=== PATIENT | female | born 1935 | race Two or more races ===

== ENCOUNTER 2024-09-06 12:57 | Outpatient (AMB) | payer MEDICARE, SELFPAY ==
[2024-09-06 13:07] VITALS: BP 146/75; PULSE 77; RESP 18; TEMP 35.2; O2SAT 96; BMI 23.8
--- NOTE | 2024-09-06 13:07 | ORTHONT_ITS ---
Vital signs 09/06/24 13:07 Height 1.55 m Height Method Stated Weight 57.351 kg Weight Measurement Method Standing Scale BMI 23.8 BP 146/75 H Blood Pressure Source Automatic Cuff Blood Pressure Location Right Upper Arm Position Sitting Respiration 18 Pulse 77 Pulse Source Monitor Temp 95.3 F L Temp Source Temporal Artery Scan Pulse Oximetry (%) 96 Oxygen Delivery Method Room Air Med/Allergies Allergies & Medications Allergies NKA* Allergy (Uncoded 09/06/24 13:09) Medication Reconciliation carvedilol 3.125 mg tablet (Coreg) 3.125 mg PO BID HEART #0 tabs 06/30/14 [History Confirmed 09/06/24] furosemide 20 mg tablet (Lasix) 20 mg PO QDAY DIURETIC #0 tabs 06/30/14 [History Confirmed 09/06/24] potassium chloride 20 mEq tablet,extended release(part/cryst) 20 meq PO QDAY POTASSIUM ##0 06/30/14 [History Confirmed 09/06/24] simvastatin 20 mg tablet (Zocor) 20 mg PO HS CHOLESTEROL #0 tabs 06/30/14 [History Confirmed 09/06/24] valsartan 80 mg tablet (Diovan) 80 mg PO QDAY HBP #0 tabs 06/30/14 [History Confirmed 09/06/24] Multivitamins With Minerals * (OCUVITE *) 1 tab PO QDAY SUPPLEMENT #0 tabs 09/05/14 [History Confirmed 09/06/24] aspirin 81 mg chewable tablet 81 mg PO QDAY HEART ##0 09/05/14 [History Confirmed 09/06/24] omeprazole 20 mg capsule,delayed release (Prilosec) 20 mg PO QDAY GERD ##0 09/05/14 [History Confirmed 09/06/24] naproxen 500 mg tablet 500 mg PO BID PRN pain #30 tabs 09/06/24 [Rx] Subjective Visit Visit for: follow up visit and hip Immunization / Flu Flu Vaccine in the Last 12 Months: No Flu Vaccine Exclusion Criteria: Refused by Patient History of Present Illness Chief complaint: RIGHT HIP PAIN Patient is a pleasant 89-year-old female with right hip pain. This has been ongoing for 6 months. She is tried ibuprofen. She is taking nzmb-juv-qyjoxny ibuprofen. Reports the pain has actually gotten better significantly. She has no difficulty with socks or shoes Pain Pain level (0-10): 0 Pain duration: ONLY WHEN SITTING TOO LONG Pain location: inside (medial) (HIP) Pain quality: sharp Pain timing: increases with activity and other (specify) (SITTING TOO LONG) Associated signs & symptoms: weakness and stiffness Ambulatory data Ambulatory device: none Treatments Improvement with previous injections: No Improvement with PT: No Improvement with NSAIDS: no Review of Systems Review of Systems: All systems negative unless otherwise noted in HPI. Exam Exam Patient is in no acute distress and is cooperative with the examination today. Breathing is nonlabored. In no respiratory distress. Patient has no paraspinal tenderness. Spinal deformity [cannot] be appreciated. The gait of the patient is [nonantalgic] Bilateral extremities were evaluated and demonstrates sensation intact to light touch. Palpable pedal pulses are present. No significant edema is present. Bilateral knees were examined and the patient has full strength and range of mo tion.. The right hip was examined. Patient was able to flex to 90 degrees, adduct to 30 degrees, abduct to 40 degrees, internally rotate to 20 degrees, and externally rotate to 20 degrees. Patient has a negative logroll. Stinchfield is negative. The patient is nontender diffusely to touch. The left hip was examined. Patient was able to flex to [90] degrees, adduct to [30] degrees, abduct to [40] degrees, internally rotate to [20] degrees, and externally rotate to [20] degrees. Patient has a [negative] logroll. The stinchfield is [negative]. Bilateral hip x-rays demonstrate moderate arthritis of both hips. The right is greater than the left. There is joint space narrowing Assessment and Plan Problem List (1) Arthritis of right hip: Status: Acute Plan: Patient is a pleasant 89-year-old female with bilateral hip pain worse on the right. We discussed nonoperative and operative options. Continue with continued conservative treatment. We will continue with anti-inflammatories we discussed we can do a hip bursa injection if needed. She will see me on an as- needed basis (2) Trochanteric bursitis of both hips: Status: Acute Advanced Care Planning Discussion Advance care planning discussed with:: patient Office Procedures GNS Level of Care Nursing/Assessment Patient Status: Established Patient Nursing Assessment/Reassesment: Medication Reconciliation, Update PMH in EMR and Vital Signs Coordination of Care: Complex Care and Chronic Disease 1-5, Education Complex Pt/Fam, Consent,records obtained, informed consent, Results/Orders obtained and Staff clarify orders Established Patient Charge Established Patient Point Assignment: 95 Established Patient Point Charge: EP Level 3 (80-115) Past Medical History Past Medical History Have you ever been diagnosed with any of the following: Respiratory Problems Smoking: No Smoking Exposure: No
== END 2024-09-06 13:27 | disposition home or self-care (01) ==
LOC: HODSRG 12:57
PROVIDERS: PCP Internal Medicine; Referring Provider Internal Medicine; Supervising Provider Orthopaedic Surgery Adult Reconstructive Orthopaedic Surgery; Visit Provider Orthopaedic Surgery Adult Reconstructive Orthopaedic Surgery
DX: M16.11 Unilateral primary osteoarthritis, right hip (principal); M70.62 Trochanteric bursitis, left hip; M70.61 Trochanteric bursitis, right hip
CPT/HCPCS: 99213; G0463

== ENCOUNTER → 2024-11-21 | Outpatient (CLI) | payer MEDICARE, SELFPAY ==
[2024-11-21 17:32] LABS: Basophils % (Auto) 0 % (0-2.5); Eosinophils % (Auto) 0 % (0-10); Hematocrit 32.5 % (36.0-46.0); Hemoglobin 10.8 g/dL (12.0-16.0); Immature Granulocytes % (Auto) 1 % (0-0); Immature Granulocytes Auto 0.07 Thou/mm3 (0.00-0.00); Lymphocytes # (Auto) 1.5 Thou/mm3 (1.0-4.8); Lymphocytes % (Auto) 28 % (10-50); Mean Corpuscular HGB Conc 33.2 g/dl (31.0-37.0); Mean Corpuscular Hemoglobin 28.6 pg (25.0-35.0); Mean Corpuscular Volume 86 fL (80-100); Monocytes # (Auto) 1.6 Thou/mm3 (0.0-0.8); Monocytes % (Auto) 30 % (0-12); Neutrophils % (Auto) 39 % (37-80); Nucleated Red Blood Cell % 0 /100 WBC (0); Platelet Count 118 Thou/mm3 (140-440); Red Blood Count 3.78 Miln/mm3 (4.00-5.20); White Blood Count 5.1 Thou/mm3 (3.6-11.0)
== END | disposition home or self-care (01) ==
LOC: COPL 16:40
PROVIDERS: PCP Internal Medicine; Referring Provider Internal Medicine; Visit Provider Internal Medicine
DX: I10 Essential (primary) hypertension (principal)
CPT/HCPCS: 36415; 85025

== ENCOUNTER 2025-01-26 09:05 | Day surgery (SDC) | payer MEDICARE, SELFPAY ==
--- NOTE | 2025-01-25 13:54 | EKG_ITS ---
[facility] Test Date: 2025-01-25 Pat Name: ABHISHEK MUELLER Department: Room: - Gender: Female Brinell Tester: JUAN JOSE : 1935 Requested By: Cecily Mendoza Order Number: [id number] Reading MD: Cecily Mendoza Measurements Intervals [place] Rate: 63 P: 48 [place]: 138 QRS: -12 QRSD: 138 T: 130 QT: 460 QTc: 474 Interpretive Statements SINUS RHYTHM POSSIBLE LEFT ATRIAL ENLARGEMENT [-0.1mV P WAVE IN V1/V2] LEFT BUNDLE BRANCH BLOCK [120+ ms QRS DURATION, 80+ ms Q/S IN V1/V2, 85+ ms R IN I/aVL/V5/V6] No previous ECG available for comparison /store/S0/[id number].pdf
[2025-01-25 14:36] LABS: Basophils % (Auto) 0 % (0-2.5); Eosinophils % (Auto) 0 % (0-10); Hematocrit 32.1 % (36.0-46.0); Hemoglobin 10.5 g/dL (12.0-16.0); Immature Granulocytes % (Auto) 1 % (0-0); Immature Granulocytes Auto 0.08 Thou/mm3 (0.00-0.00); Lymphocytes # (Auto) 1.6 Thou/mm3 (1.0-4.8); Lymphocytes % (Auto) 24 % (10-50); Mean Corpuscular HGB Conc 32.7 g/dl (31.0-37.0); Mean Corpuscular Hemoglobin 28.5 pg (25.0-35.0); Mean Corpuscular Volume 87 fL (80-100); Monocytes # (Auto) 1.6 Thou/mm3 (0.0-0.8); Monocytes % (Auto) 24 % (0-12); Neutrophils # (Auto) 3.2 Thou/mm3 (1.8-7.7); Neutrophils % (Auto) 50 % (37-80); Nucleated Red Blood Cell % 0 /100 WBC (0); Platelet Count 122 Thou/mm3 (140-440); RDW Standard Deviation 43.9 fL (36.4-46.3); Red Blood Count 3.68 Miln/mm3 (4.00-5.20); White Blood Count 6.5 Thou/mm3 (3.6-11.0)
[2025-01-25 14:51] LABS: Partial Thromboplastin Time 27.5 Seconds (22.0-36.0); Prothrombin Time 10.9 Seconds (9.0-12.2)
[2025-01-25 14:52] LABS: Anion Gap 7 (7-16); BUN/Creatinine Ratio 23 Ratio (12-20); Blood Urea Nitrogen 27 mg/dL (9-23); Calcium 9.2 mg/dL (8.3-10.6); Carbon Dioxide 29.8 mMol/L (20.0-31.0); Chloride 104 mMol/L (98-107); Creatinine (Component) 1.2 mg/dL (0.6-1.3); Glucose 189 mg/dL (74-106); Osmolality,Calculated 291 (275-295); Potassium 5.2 mMol/L (3.4-5.1); Sodium 141 mMol/L (136-145); eGFR 44 See Note
[2025-01-26] VITALS (14 sets, daily range): BP systolic 103–173; BP diastolic 45–81; PULSE 55–79; RESP 12–26; TEMP 36.2–36.4; O2SAT 93–98; BMI 22.1
--- NOTE | 2025-01-26 12:13 | ESOP_ITS ---
RE: ABHISHEK MUELLER : 1935 DATE OF OPERATION: 01/26/2025 PROCEDURE PERFORMED: 1. Diagnostic left heart cardiac catheterization, selective coronary angiogram, CPT 61711. 2. Conscious sedation 30 minutes duration. 3. Ultrasound-guided access, right radial artery. DIAGNOSES: Coronary artery disease and angina pectoris, status post aortic valve replacement surgery. HISTORY AND INDICATIONS: The patient is an 89-year-old female with a history of coronary artery disease, status post stent placement, aortic valve replacement surgery. She has been having episodes of recurrent chest tightness, shortness of breath, and minimal exertion and stress test was inconclusive. Coronary angiogram was recommended to assess the patient is a candidate for coronary intervention and revascularization. DESCRIPTION OF PROCEDURE: The patient was brought to cardiac catheterization laboratory. She was given 2 mg of Versed and 50 mcg of fentanyl for sedation. Right radial approach was taken. Right radial artery was cannulated by micropuncture technique, 6-Malaysian Glidesheath introduced. Selective right and left coronary angiogram performed by TIG-4 diagnostic catheter. Aortic root angiogram performed by TIG-4 diagnostic catheter. The patient tolerated the procedure without complications. Cardiac catheterization showed following findings. Hemodynamics: Left ventricular pressure was not obtained. Aortic pressure is 130/70 mmHg. Coronary angiogram showed following findings: Right coronary artery is large and dominant, gives off large posterolateral branch and small PDA appeared normal. Left coronary system. Left main coronary artery is normal. Left anterior descending artery showed stent in the mid left anterior descending artery widely patent. Proximal left anterior descending artery showed what appears to be 50% to 60% stenosis, appears to be moderate stenosis, not critical. Circumflex artery is nondominant and appears normal. SUMMARY OF FINDINGS: Single-vessel coronary artery disease, evidence of 50% to 60% stenosis of the proximal left anterior descending artery. RECOMMENDATIONS: Continue medical management. If she has worsening of symptoms, we will perform intracoronary ultrasound examination and possible PCI of the left anterior descending artery electively. DT: 11:55:35 TT: 12:11:00 Ref: [id number] - TID: [id number]
--- NOTE | 2025-01-26 15:01 | PC.NURSE ---
1128 patient is awake, alert, breathing unlabored. s/p LHC by dr. Bowie, TR band present to right wrist, no bleeding or hematoma noted. Patient to be discharged home 1hr post TR band removal. 1221 patient is awake, alert, breathing unlabored, report given to Nayeli RN 1258 report received from Barbara CRISTINA, patient had TR band removal at 1225, no bleeding or hematoma noted to right wrist. 1350 patient is awake, alert, breathing unlabored, able to eat part of her lunch tray with no nausea or vomiting, able to ambulate to bathroom and void, meets discharge criteria, discharge instructions given to patient and granddaughter Darcie, patient discharged home in wheelchair with all belongings.
== END 2025-01-26 13:50 | disposition home or self-care (01) ==
PROVIDERS: PCP Internal Medicine; Referring Provider Internal Medicine Cardiovascular Disease; Visit Provider Internal Medicine Cardiovascular Disease
PROC: (CPT 93458; principal; 2025-01-26 10:00)
DX: I25.118 Atherosclerotic heart disease of native coronary artery with other forms of angina pectoris (principal); Z95.2 Presence of prosthetic heart valve; Z95.5 Presence of coronary angioplasty implant and graft; Z01.810 Encounter for preprocedural cardiovascular examination
CPT/HCPCS: 93458; 36415; 80048; 85025; 85610; 85730; 93005; 99152; A4649; C1769; C1887; C1894; J0171; J0461; J1643; J2250; J2310; J2371; J3010; J3490; Q9967

== ENCOUNTER 2025-02-15 09:17 | Day surgery (SDC) | payer MEDICARE, SELFPAY ==
[2025-02-15] VITALS (19 sets, daily range): BP systolic 118–173; BP diastolic 46–76; PULSE 52–74; RESP 14–20; TEMP 36.2–36.8; O2SAT 94–100; BMI 22.7; BMI 22.6
--- NOTE | 2025-02-15 08:46 | EKG_ITS ---
[facility] Test Date: 2025-02-15 Pat Name: ABHISHEK MUELLER Department: Room: - Gender: Female Graduate Civil Engineer: NILSA : 1935 Requested By: Cecily Mendoza Order Number: [id number] Reading MD: Cecily Mendoza Measurements Intervals [place] Rate: 76 P: 55 [place]: 150 QRS: -16 QRSD: 140 T: 105 QT: 447 QTc: 504 Interpretive Statements SINUS RHYTHM POSSIBLE LEFT ATRIAL ENLARGEMENT [-0.1mV P WAVE IN V1/V2] LEFT BUNDLE BRANCH BLOCK [120+ ms QRS DURATION, 80+ ms Q/S IN V1/V2, 85+ ms R IN I/aVL/V5/V6] Compared to ECG 01/25/2025 14:32:11 No significant changes /store/S0/[id number]/ecg/[id number].pdf
[2025-02-15 10:13] LABS: Basophils % (Auto) 0 % (0-2.5); Eosinophils % (Auto) 0 % (0-10); Hematocrit 32.1 % (36.0-46.0); Hemoglobin 10.6 g/dL (12.0-16.0); Immature Granulocytes % (Auto) 2 % (0-0); Immature Granulocytes Auto 0.09 Thou/mm3 (0.00-0.00); Lymphocytes # (Auto) 1.1 Thou/mm3 (1.0-4.8); Lymphocytes % (Auto) 24 % (10-50); Mean Corpuscular Volume 88 fL (80-100); Monocytes # (Auto) 1.3 Thou/mm3 (0.0-0.8); Monocytes % (Auto) 28 % (0-12); Neutrophils # (Auto) 2.2 Thou/mm3 (1.8-7.7); Neutrophils % (Auto) 46 % (37-80); Nucleated Red Blood Cell % 0 /100 WBC (0); Platelet Count 124 Thou/mm3 (140-440); RDW Standard Deviation 43.4 fL (36.4-46.3); Red Blood Count 3.66 Miln/mm3 (4.00-5.20); White Blood Count 4.7 Thou/mm3 (3.6-11.0)
[2025-02-15 10:31] LABS: Partial Thromboplastin Time 27.4 Seconds (22.0-36.0); Prothrombin Time 11.1 Seconds (9.0-12.2)
[2025-02-15 10:35] LABS: Anion Gap 9 (7-16); BUN/Creatinine Ratio 24 Ratio (12-20); Blood Urea Nitrogen 29 mg/dL (9-23); Calcium 9.2 mg/dL (8.3-10.6); Carbon Dioxide 27.5 mMol/L (20.0-31.0); Chloride 105 mMol/L (98-107); Creatinine (Component) 1.2 mg/dL (0.6-1.3); Glucose 140 mg/dL (74-106); Osmolality,Calculated 289 (275-295); Potassium 4.8 mMol/L (3.4-5.1); Sodium 141 mMol/L (136-145); eGFR 44 See Note
[2025-02-15] MEDS: ASPIRIN 81 MG CHEW PO (13:08)
--- NOTE | 2025-02-15 13:20 | ESOP_ITS ---
RE: ABHISHEK MUELLER : 1935 DATE OF OPERATION: 02/15/2025 PROCEDURE PERFORMED: 1. PCI, PTCA stent placement of the proximal left anterior descending artery, placement of drug-eluting stent 3.0 x 12 mm Eric CATHI Medtronic drug-eluting stent, preprocedure stenosis 80% and postprocedure stenosis 0%; preprocedure CHRYSTAL flow 3 and postprocedure CHRYSTAL flow 3. 2. Ultrasound guided access, right radial artery. 3. Conscious sedation 30-minute duration. DIAGNOSES: Symptomatic proximal left anterior descending artery stenosis on maximum medical management and class 3 angina pectoris. HISTORY AND INDICATIONS: The patient is an 89-year-old with a history of aortic valve replacement, hypertension, and known coronary artery disease. He has been having episodes of recurrent chest tightness and shortness of breath with minimal exertion, class 3 angina on maximum medical management. Coronary angiogram was performed recently and showed evidence of 80% stenosis of the proximal left anterior descending coronary artery. Medical management was maximized and he still had chest tightness, hence PCI stent placement was recommended for the proximal left anterior descending artery stenosis, both for symptom relief and also prognosis. DESCRIPTION OF PROCEDURE: The patient was brought to cardiac catheterization laboratory where she was given 2 mg Versed and 50 mcg of fentanyl for sedation. Right radial approach was taken. Right radial artery was cannulated with micropuncture technique. Ultrasound guidance was used to access the right radial artery. A 6-Kyrgyz Glidesheath was introduced. Radial cocktail with 2000 units Heparin was given, additional 3000 units heparin was given. ACT was 390. Proceed with PCI. A 6-Kyrgyz JL 3.5 guiding catheter was used to cannulate the left main coronary artery. A 0.014 Runthrough guidewire was used to cross the lesion successfully. Direct stent placement was performed using 3.0 x 12 mm Eric Medtronic drug eluted stent was deployed successfully with 2 inflations, second inflation was 14 atmospheres, the first was 12 atmospheres with excellent angiographic results. The vessel dilated up to 3.1 mm size. The patient had no complications. Multiple views showed 0% residual stenosis, CHRYSTAL flow 3 established. SUMMARY: Successful PCI, PTCA stent placement of proximal left anterior descending artery with placement of drug eluted stent Medtronic Eric 3.0 x 12 drug-eluted stent with excellent angiographic results, no complications. cc: Marc Fuentes MD DT: 12:19:13 TT: 13:19:00 Ref: [id number] - TID: [id number]
--- NOTE | 2025-02-15 17:01 | PC.NURSE ---
1223 patient is awake, alert, breathing unlabored, s/p LHC with PCI, Tr band present to right wrist, no bleeding or hematoma noted. Report received from Florian CRISTINA, patient to resume plavix tomorrow and have aspirin today. 1310 report given to Florian CRISTINA 1356 report received from florian CRISTINA 1520 TR band removed no bleeding or hematoma noted, site covered with tegaderm and coban. 1630 patient is awake, alert, breathing unlabored, dressing dry with no bleeding, patient able to tolerate food tray with no nausea or vomiting, meets disccharge criteria, discharge instructions given ot patient and Jack. patient discharged home in wheelchair with all belongings. pt to resume aspirin and plavix tomorrow. aspirin given today.
== END 2025-02-15 16:30 | disposition home or self-care (01) ==
PROVIDERS: PCP Internal Medicine; Referring Provider Internal Medicine Cardiovascular Disease; Visit Provider Internal Medicine Cardiovascular Disease
PROC: (CPT C9600; principal; 2025-02-15 11:30)
DX: I25.118 Atherosclerotic heart disease of native coronary artery with other forms of angina pectoris (principal); I10 Essential (primary) hypertension; Z95.2 Presence of prosthetic heart valve; Z95.5 Presence of coronary angioplasty implant and graft; Z01.810 Encounter for preprocedural cardiovascular examination
CPT/HCPCS: C9600; 36415; 80048; 85025; 85347; 85610; 85730; 93005; 99152; A4649; C1769; C1874; C1887; C1894; J0171; J0461; J1643; J2250; J2310; J2371; J3010; J3490; Q9967; A9270

== ENCOUNTER → 2025-04-26 | Outpatient (CLI) | payer MEDICARE, SELFPAY ==
[2025-04-26 17:15] LABS: Albumin, Serum 4.2 gm/dL (3.4-4.8); Anion Gap 10 (7-16); BUN/Creatinine Ratio 25 Ratio (12-20); Blood Urea Nitrogen 33 mg/dL (9-23); Calcium 9.4 mg/dL (8.3-10.6); Calcium (Corrected) 9.4 mg/dL (8.5-10.1); Carbon Dioxide 32.4 mMol/L (20.0-31.0); Chloride 100 mMol/L (98-107); Creatinine (Component) 1.3 mg/dL (0.6-1.3); Glucose 166 mg/dL (74-106); Osmolality,Calculated 294 (275-295); Phosphorous 4.4 mg/dL (2.4-5.1); Potassium 4.2 mMol/L (3.4-5.1); Sodium 142 mMol/L (136-145); eGFR 40 See Note
== END | disposition home or self-care (01) ==
LOC: COPL 15:35
PROVIDERS: PCP Internal Medicine; Referring Provider Internal Medicine Cardiovascular Disease; Visit Provider Internal Medicine Cardiovascular Disease
DX: I50.32 Chronic diastolic (congestive) heart failure (principal)
CPT/HCPCS: 36415; 80069

== ENCOUNTER 2025-05-15 06:38 | Day surgery (SDC) | payer MEDICARE, SELFPAY ==
--- NOTE | 2025-05-12 07:00 | EKG_ITS ---
[facility] Test Date: 2025-05-12 Pat Name: ABHISHEK MUELLER Department: Room: - Gender: Female Waybill Clerk: ELISA : 1935 Requested By: Cecily Mendoza Order Number: [id number] Reading MD: Cecily Mendoza Measurements Intervals [place] Rate: 79 P: 54 [place]: 139 QRS: -25 QRSD: 151 T: 107 QT: 428 QTc: 491 Interpretive Statements SINUS RHYTHM WITH OCCASIONAL SUPRAVENTRICULAR PREMATURE COMPLEXES LEFT ATRIAL ENLARGEMENT [-0.15mV P WAVE IN V1/V2] INTRAVENTRICULAR CONDUCTION DELAY [130+ ms QRS DURATION] Compared to ECG 02/15/2025 09:57:22 Intraventricular conduction delay now present Left bundle-branch block no longer present /store/S0/[id number]/ecg/[id number].pdf
[2025-05-12 13:25] LABS: Basophils # (Auto) 0.0 Thou/mm3 (0.0-0.2); Basophils % (Auto) 0 % (0-2.5); Eosinophils # (Auto) 0.0 Thou/mm3 (0.0-0.5); Eosinophils % (Auto) 0 % (0-10); Hematocrit 36.0 % (36.0-46.0); Hemoglobin 11.8 g/dL (12.0-16.0); Immature Granulocytes Auto 0.11 Thou/mm3 (0.00-0.00); Lymphocytes # (Auto) 1.0 Thou/mm3 (1.0-4.8); Lymphocytes % (Auto) 13 % (10-50); Mean Corpuscular HGB Conc 32.8 g/dl (31.0-37.0); Mean Corpuscular Hemoglobin 28.9 pg (25.0-35.0); Mean Corpuscular Volume 88 fL (80-100); Monocytes # (Auto) 2.2 Thou/mm3 (0.0-0.8); Monocytes % (Auto) 28 % (0-12); Neutrophils # (Auto) 4.5 Thou/mm3 (1.8-7.7); Neutrophils % (Auto) 57 % (37-80); Nucleated Red Blood Cell # 0.00 Thou/mm3 (0.00-0.00); Nucleated Red Blood Cell % 0 /100 WBC (0); Platelet Count 168 Thou/mm3 (140-440); RDW Standard Deviation 47.2 fL (36.4-46.3); Red Blood Count 4.08 Miln/mm3 (4.00-5.20); White Blood Count 7.9 Thou/mm3 (3.6-11.0)
[2025-05-12 13:37] LABS: Anion Gap 14 (7-16); BUN/Creatinine Ratio 32 Ratio (12-20); Blood Urea Nitrogen 55 mg/dL (9-23); Calcium 9.7 mg/dL (8.3-10.6); Carbon Dioxide 29.4 mMol/L (20.0-31.0); Chloride 96 mMol/L (98-107); Creatinine (Component) 1.7 mg/dL (0.6-1.3); Glucose 204 mg/dL (74-106); INR 1.1 (0.9-1.3); Osmolality,Calculated 298 (275-295); Partial Thromboplastin Time 26.6 Seconds (22.0-36.0); Potassium 4.0 mMol/L (3.4-5.1); Prothrombin Time 11.9 Seconds (9.0-12.2); Sodium 139 mMol/L (136-145); eGFR 29 See Note
[2025-05-15] VITALS (17 sets, daily range): BP systolic 106–141; BP diastolic 39–72; PULSE 56–86; RESP 14–20; TEMP 36.4–36.8; O2SAT 93–98; BMI 21.4
--- NOTE | 2025-05-15 07:32 | SUR.PREOP ---
Patient expressed gratitude for prayer before their procedure.
--- NOTE | 2025-05-15 09:37 | ESOP_ITS ---
RE: ABHISHEK MUELLER : 1935 DATE OF OPERATION: 05/15/2025 PROCEDURES PERFORMED: 1. Diagnostic right and left heart cardiac catheterization, selective coronary angiogram, left ventricular angiogram, CPT 02751. 2. Aortic root angiogram 3. Conscious sedation, 30-minute duration. 4. Ultrasound-guided access of the right femoral artery and femoral vein. DIAGNOSES: Severe aortic regurgitation, acute congestive heart failure, prosthetic valve dysfunction, known coronary artery disease with stent placement. HISTORY AND INDICATIONS: The patient is an 89-year-old lady with a history of coronary artery disease, stent placement in the LAD recently. The patient did have an aortic valve replacement for severe aortic stenosis in 2007, had Biocor #21 bioprosthetic valve, was doing well until last couple of months, has progressive and severe shortness of breath on minimal exertion, class III heart failure symptoms, was treated with diuretic therapy and medical management. Continues to have shortness of breath. Cardiac echo showed severe aortic regurgitation, fairly recent with prosthetic valve dysfunction and mild stenosis. PA pressure was about 70. Hence, right and left heart cardiac catheterization was recommended to assess if the patient is a candidate for aortic valve replacement, TAVR procedure. PROCEDURE IN DETAIL: The patient was brought to the cardiac catheterization laboratory where she was given conscious sedation with 2 mg of Versed and 50 mcg of fentanyl. Right radial artery approach was initially taken. A 5-Chadian sheath was introduced. Micropuncture technique was used to cannulate the right radial artery. A 5-Chadian Glidesheath was introduced. There was no good return on the flow because of spasm and so I abandoned the procedure and went to the right femoral approach. The right femoral artery was cannulated by micropuncture technique under ultrasound guidance. A 5-Chadian sheath was introduced. The right femoral vein was cannulated by micropuncture technique and a 7-Chadian sheath was introduced. Right heart catheterization was performed by a Mclean-Jess catheter. Right heart pressures were measured. Cardiac output was measured. Miya cardiac output was also measured. Left heart catheterization was performed by an AL1 diagnostic catheter. Left ventricular pressure was recorded. An aortic root angiogram was performed by a 5-Chadian pigtail catheter. Subsequently, selective right and left coronary angiogram performed by Jeanette catheters, FR4 and FL4 and multiple views were obtained. Total contrast used was 50 mL. An iliofemoral angiogram was performed. An Angio-Seal was not deployed because close to bifurcation was the entry site. Cardiac catheterization showed following findings: Right atrial pressure elevated at a mean of 10 mmHg. Right ventricular pressure is 61/10 mmHg. Pulmonary artery pressure is 60/24 mmHg with a mean of 39 mmHg. Pulmonary artery wedge pressure V-wave of 29, A-wave of 18, mean pressure is 21. Left ventricular pressure 123/5, EDP of 36. Aortic pressure is measured to be 124/33. Diastolic is low due to aortic regurgitation. Cardiac output was 2 L per minute. Aortic root angiogram showed wide open, severe 4+ aortic regurgitation. You can see the entire left ventricle. Left ventricular function appears to be well preserved. Ejection fraction is 55%. No significant mitral regurgitation was seen in the ENGLISH view. Coronary angiogram showed followed findings: Right coronary artery large and dominant, giving off PDA and posterolateral branch, appeared normal. The right coronary origin appears to be slightly low. Left coronary system, left main coronary artery is normal. The left anterior descending artery showed a proximal LAD stent which is patent. The rest of the LAD is normal. The left circumflex artery nondominant and appeared normal. There is evidence of post-stenotic dilatation of the aorta with the ascending aorta measuring 4.5 cm. SUMMARY OF FINDINGS: 1. Severe aortic valve regurgitation, prosthetic valve dysfunction with mild stenosis. 2. 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 3. Nonobstructive coronary arteries. 4. 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 RECOMMENDATIONS: The patient will be recommended to continue medical management. We will get blood cultures to make sure there is no clinical evidence of endocarditis; however, we will get a blood culture for completion sake. A transesophageal echo will be ordered for assessment of prosthetic valve. The patient will probably be recommended to have a transcutaneous aortic valve replacement, TAVR procedure. I do not think she is a candidate for surgery at her age and with multiple comorbidities. We will consult Dr. Wade for the TAVR procedure. DT: 09:08:15 TT: 09:36:00 Ref: [id number] - TID: [id number] [facility]
[2025-05-15 10:42] LABS: O2 Saturation (Cath Lab) 52 % (91-98)
[2025-05-15 10:43] LABS: Puncture Site Pulmonary Artery
--- NOTE | 2025-05-15 12:49 | PC.NURSE ---
1209 patient is awake, alert, breathing unlabored, s/p LHC and RHC, TR band has been removed from right wrist, no bleeding or hematoma noted . ARterial and Venous sheath has been removed from right groin, dressing clean, dry and intact with no hematoma report received from damari CRISTINA 2330 Report given to Damari CRISTINA
== END 2025-05-15 14:17 | disposition home or self-care (01) ==
PROVIDERS: PCP Internal Medicine; Referring Provider Internal Medicine Cardiovascular Disease; Visit Provider Internal Medicine Cardiovascular Disease
PROC: (CPT 93460; principal; 2025-05-15 07:30)
DX: I25.118 Atherosclerotic heart disease of native coronary artery with other forms of angina pectoris (principal); I27.22 Pulmonary hypertension due to left heart disease; Z95.2 Presence of prosthetic heart valve; Z95.5 Presence of coronary angioplasty implant and graft; Z01.810 Encounter for preprocedural cardiovascular examination; I50.32 Chronic diastolic (congestive) heart failure; I11.0 Hypertensive heart disease with heart failure; T82.09XA Other mechanical complication of heart valve prosthesis, initial encounter
CPT/HCPCS: 93460; 36415; 80048; 82810; 85025; 85610; 85730; 87040; 93005; 99152; 99153; A4649; C1725; C1769; C1887; C1894; J0168; J0461; J1643; J2250; J2310; J2371; J3010; J3490; Q9967

== ENCOUNTER 2025-05-17 14:54 | Outpatient (CLI) | payer MEDICARE, SELFPAY ==
[2025-05-17] VITALS (12 sets, daily range): BP systolic 112–134; BP diastolic 44–79; PULSE 56–78; RESP 13–23; TEMP 36.3–36.6; O2SAT 92–100
--- NOTE | 2025-05-17 15:52 | ECHO_ITS ---
Transesophageal Echo Report Ht (in): Wt (lb): Exam Location: Echo Lab Status: Outpatient Facing Slitter: Paulette Hunter Indications: Procedure Performed: BP: / HR: MEASUREMENTS 2D ECHO Ascending Aorta Diameter 3.1 cm DOPPLER AI Peak Velocity 399.0 cm/s AI Peak Gradient 63.7 mmHg AI Pressure Half Time 188.0 ms MV Peak Velocity 160.0 cm/s MV Peak Gradient 10.2 mmHg MV Mean Velocity 77.5 cm/s MV Mean Gradient 3.0 mmHg MR Peak Velocity 492.0 cm/s MR Peak Gradient 96.8 mmHg MR ERO PISA 0.3 cm? MR Regurgitant Volume PISA 43.8 cm? (Male / Female) Normal Values FINDINGS Left Ventricle Normal left ventricular size, wall thickness, systolic function with no obvious regional wall motion abnormalities. Normal left ventricular diastolic filling pattern for age. The ejection fraction is visually estimated at 55 %. Right Ventricle The right ventricle is normal in size and systolic function. Left Atrium The left atrium is normal by two-dimensional, color flow and Doppler imaging with no structural abnormalities, no thrombus formation present. Right Atrium The right atrium is normal by two-dimensional imaging, color flow and Doppler imaging with no structural abnormalities, no thrombus formation present. Atrial Appendages The left atrial appendage appears normal with no evidence for thrombus. Atrial Septum The interatrial septum appears normal with no evidence of a shunt. Aorta The aorta is normal by two-dimensional, color flow and Doppler interrogation. Mitral Valve Yzpwkivr-zn-zkcxvi mitral regurgitation. MV PISA regurgitant volume is 43.8 cm?. MV PISA effective regurgitant orifice (ERO) is 0.27 cm?. 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 There is no evidence fo prolapse or flail leaflets. Tricuspid Valve The tricuspid valve is normal by two-dimensional, color flow and Doppler interrogation. There is no significant tricuspid valve regurgitation. Pulmonic Valve The pulmonic valve is normal by two-dimensional, color flow and Doppler interrogation. There is no significant pulmonic valve regurgitation. Vessels The pulmonary artery appears normal. The inferior vena cava pulmonary and hepatic veins appear normal. Pericardium The pericardium is normal by two-dimensional imaging. There is no significant pericardial effusion. CONCLUSIONS Indication: MD order Normal LV size and wall thickness. Estimated EF at 55-60%. 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 Central AI . There is no evidence fo prolapse or flail leaflets. No eveidence of any abcess. Mostly degenerative etiology. Ascending aortic dilataion noted - moderate at 4.5 cm Moderate MR. MV PISA regurgitant volume is 43.8 cm?. MV PISA effective regurgitant orifice (ERO) is 0.27 cm?. Normal RV size and function. Modertae to severe TR. RSVP 60-70 mmhg Bubble study negative for PFO/ASD and no LA/ NICOLA thrombus. Cyril Wade (Electronically Signed) Final Date: 19 May 2025 19:18
[2025-05-17] MEDS: fentaNYL CIT INJ 50 mCg/ML AMP 2ML 75 MCG IVP (16:46)
[2025-05-17] MEDS: BENZOCAINE 20% (Hurricaine) SPRAY 1 DOSE TOP (16:46)
[2025-05-17] MEDS: MIDAZOLAM INJ 1 MG/ML VIAL 2 ML 3 MG IVP (16:46)
--- NOTE | 2025-05-17 18:01 | PC.NURSE ---
1720 patient is sleepy and arousable, breathing unlabored, s/p bo by dr moseley, report received from Damari CRISTINA
--- NOTE | 2025-05-17 18:09 | PC.NURSE ---
1805 patient is awake, alert, breathing unlabored, able to drink water with no nausea, vomiting or difficulty swallowing, able to ambulate to bathroom and void, meets discharge criteria, discharge instructions given to patient and family member, patient discharged home in personal wheelchair with all belongings including partial dentures which were given to patient to put back on.
== END 2025-05-17 18:05 | disposition home or self-care (01) ==
LOC: S2EX 14:59 → SCCL 15:00
PROVIDERS: PCP Internal Medicine; Referring Provider Internal Medicine Cardiovascular Disease; Visit Provider Internal Medicine Cardiovascular Disease
PROC: (CPT 93312; principal; 2025-05-17 16:00)
DX: I35.1 Nonrheumatic aortic (valve) insufficiency (principal); R06.02 Shortness of breath; I10 Essential (primary) hypertension; I44.7 Left bundle-branch block, unspecified; I25.118 Atherosclerotic heart disease of native coronary artery with other forms of angina pectoris; I34.0 Nonrheumatic mitral (valve) insufficiency
CPT/HCPCS: 93312; 99152; J2250; J3010; A9270

== ENCOUNTER 2025-05-19 00:17 | Inpatient (IN) | payer MEDICARE, SELFPAY ==
[2025-05-19] VITALS (10 sets, daily range): BP systolic 104–131; BP diastolic 44–62; PULSE 51–76; RESP 17–98; TEMP 36.1–36.6; O2SAT 95–98; BMI 21.0
--- NOTE | 2025-05-19 00:32 | EKG_ITS ---
[facility] Test Date: 2025-05-19 Pat Name: ABHISHEK MUELLER Department: Room: - Gender: Female Circulation Representative: : 1935 Requested By: ED Temporary Provider Order Number: [id number] Reading MD: ED Temporary Provider Measurements Intervals [place] Rate: 75 P: 51 [place]: 141 QRS: -16 QRSD: 147 T: 135 QT: 428 QTc: 481 Interpretive Statements SINUS RHYTHM LEFT BUNDLE BRANCH BLOCK [120+ ms QRS DURATION, 80+ ms Q/S IN V1/V2, 85+ ms R IN I/aVL/V5/V6] Compared to ECG 05/12/2025 13:32:13 Left bundle-branch block now present Atrial abnormality no longer present Intraventricular conduction delay no longer present /store/S0/[id number]/[id number].pdf
--- NOTE | 2025-05-19 01:23 | XR_ITS ---
Examination: AP chest single view TECHNIQUE: AP portable supine and upright chest single view Date and time: May 19, 2025 0156 hours INDICATIONS: Shortness of breath and chest pain today. FINDINGS: Minor prominence of ventricle Moderate vascular congestion. No lobar pneumonia. Median sternotomy wires IMPRESSION: Moderate vascular congestion
--- NOTE | 2025-05-19 01:24 | PD.EDRME ---
Rapid Medical Screening Exam [facility] Arrival date/time: 05/19/25 00:17 89F with history of heart valve repair, HTN, and DM presents to ED with worsening SOB when lying down. Patient denies URI symptoms. Patient had a ANTHONY 2 days ago. Chief Complaint: Shortness of Breath/Dyspnea Time Seen by Provider: 05/19/25 00:56 Vital signs: Vital Signs Temperature 97.8 F 05/19/25 00:44 Pulse Rate 75 05/19/25 00:44 Respiratory Rate 20 05/19/25 00:44 Blood Pressure 116/62 05/19/25 00:44 Pulse Oximetry (%) 95 05/19/25 00:44 Oxygen Delivery Method Room Air 05/19/25 00:44
[2025-05-19 02:10] LABS: Basophils # (Auto) 0.0 Thou/mm3 (0.0-0.2); Basophils % (Auto) 0 % (0-2.5); Eosinophils # (Auto) 0.0 Thou/mm3 (0.0-0.5); Eosinophils % (Auto) 0 % (0-10); Hematocrit 32.4 % (36.0-46.0); Hemoglobin 10.6 g/dL (12.0-16.0); Immature Granulocytes Auto 0.08 Thou/mm3 (0.00-0.00); Lymphocytes # (Auto) 0.6 Thou/mm3 (1.0-4.8); Lymphocytes % (Auto) 11 % (10-50); Mean Corpuscular HGB Conc 32.7 g/dl (31.0-37.0); Mean Corpuscular Hemoglobin 28.8 pg (25.0-35.0); Mean Corpuscular Volume 88 fL (80-100); Monocytes # (Auto) 1.8 Thou/mm3 (0.0-0.8); Monocytes % (Auto) 30 % (0-12); Neutrophils # (Auto) 3.6 Thou/mm3 (1.8-7.7); Neutrophils % (Auto) 58 % (37-80); Nucleated Red Blood Cell # 0.00 Thou/mm3 (0.00-0.00); Nucleated Red Blood Cell % 0 /100 WBC (0); Platelet Count 121 Thou/mm3 (140-440); RDW Standard Deviation 46.5 fL (36.4-46.3); Red Blood Count 3.68 Miln/mm3 (4.00-5.20); White Blood Count 6.1 Thou/mm3 (3.6-11.0)
[2025-05-19 02:45] LABS: B-Type Natriuretic Peptide > 3280 pg/mL (0-100)
[2025-05-19 02:46] LABS: Alanine Aminotransferase 38 U/L (10-49); Albumin, Serum 4.1 gm/dL (3.4-4.8); Albumin/Globulin Ratio 1.5 (1.2-2.2); Alkaline Phosphatase 110 U/L (46-116); Anion Gap 11 (7-16); Aspartate Amino Transferase 31 U/L (0-34); BUN/Creatinine Ratio 29 Ratio (12-20); Bilirubin,Total 0.9 mg/dL (0.3-1.2); Blood Urea Nitrogen 57 mg/dL (9-23); Calcium 9.9 mg/dL (8.3-10.6); Calcium (Corrected) 9.9 mg/dL (8.5-10.1); Carbon Dioxide 26.3 mMol/L (20.0-31.0); Chloride 100 mMol/L (98-107); Creatinine (Component) 2.0 mg/dL (0.6-1.3); Estimated Creatinine Clearance 15.4 mL/min (>60); Globulin 2.7 gm/dL (2.3-3.5); Glucose 301 mg/dL (74-106); Magnesium 2.5 mg/dL (1.6-2.6); Osmolality,Calculated 300 (275-295); Potassium 4.9 mMol/L (3.4-5.1); Sodium 137 mMol/L (136-145); Total Protein 6.8 gm/dL (5.7-8.2); eGFR 24 See Note
[2025-05-19 02:50] LABS: Troponin I 0.057 ng/mL (0.0-0.045)
--- NOTE | 2025-05-19 03:15 | PD.EDSOB ---
ED SOB =RME/HPI General Chief Complaint: Shortness of Breath/Dyspnea Stated Complaint: SOB Time Seen by Provider: 05/19/25 00:56 Arrival date/time: 05/19/25 00:17 Limitations: no limitations RME / HPI RME / HPI Narrative: 05/19/25 00:17 89F with history of heart valve repair, HTN, and DM presents to ED with worsening SOB when lying down. Patient denies URI symptoms. Patient had a ANTHONY [address] Reveles's Main ED Evaluation: 89yo female with a history of CHF, HTN, aortic valve replacement, valvular disease, DM presents to the ED for a chief complaint of shortness of breath that started just [employer] while in bed. Patient reports associated nausea. Patient denies any chest pain, fever, chills, or any other associated symptoms. NKA. Related Data Home Medications ?Medication ?Instructions ?Recorded ?Confirmed carvedilol 3.125 mg tablet (Coreg) 3.125 mg PO BID HEART #0 tabs 06/30/14 05/17/25 simvastatin 20 mg tablet (Zocor) 20 mg PO HS CHOLESTEROL #0 tabs 06/30/14 05/17/25 valsartan 80 mg tablet (Diovan) 80 mg PO QDAY HBP #0 tabs 06/30/14 05/17/25 aspirin 81 mg chewable tablet 81 mg PO QDAY HEART ##0 09/05/14 05/17/25 clopidogrel 75 mg tablet (Plavix) 75 mg PO QDAY 02/15/25 05/17/25 metformin 500 mg tablet 500 mg PO QDAY 02/15/25 05/17/25 bumetanide 2 mg tablet 2 mg PO QDAY 05/15/25 05/17/25 spironolactone 25 mg tablet 25 mg PO QDAY 05/15/25 05/17/25 Allergies Allergy/AdvReac Type Severity Reaction Status Date / Time NKA* Allergy Uncoded 05/17/25 16:29 Review of Systems Review of Systems Systems Reviewed: All systems reviewed, normal except as documented Past Medical History Past Medical History NEUROLOGIC: Negative Neurological Disorders CARDIAC: Positive Cardiac Disorders (sob), Hypercholesterolemia, Congestive Heart Failure, Valvular Heart Disease and Hypertension RESPIRATORY: Negative Chronic Obstructive Pulmonary Disease (COPD), Smoking or Smoking Exposure GASTROINTESTINAL: Negative Gastrointestinal Disorders GENITOURINARY: Negative Genitourinary Disorders or Renal Disease REPRODUCTIVE: Negative Pelvic Inflammatory Disease MUSCULOSKELETAL: Positive Osteoporosis; Negative Musculoskeletal Disorders ENDOCRINE: Positive Endocrine Disorders and Diabetes Mellitus Type 2; Negative Diabetes Mellitus Type 1 HEMATOLOGIC: Negative Blood Disorders OTHER HISTORY: Positive Hospitalization; Negative Blood Transfusions, Anesthesia Reactions or Cancer Surgical History SURGICAL: Positive Cardiac Surgery, Valve Replacement (2008), Cardiac Catheterization, Angiogram and Hysterectomy; Negative Endocrine Surgery, Abdominal Surgery or Joint Replacement Social History SMOKING STATUS: Never smoker ED Exam General Limitations: Present no limitations General appearance: Present alert, in no apparent distress and other (appears frail and chronically ill) Head Head exam: Present atraumatic Eye Eye exam: Present normal appearance, PERRL and EOMI ENT ENT exam: Present normal oropharynx and mucous membranes dry Neck Neck exam: Present normal inspection, full ROM and trachea midline Chest Chest inspection: Present normal inspection and symmetric chest wall rise Respiratory Respiratory exam: Present normal lung sounds bilaterally Cardiovascular Cardiovascular exam: Present regular rate, normal rhythm and systolic murmur (5/6 ejection murmur at the right sternal border) Abdominal Exam Abdominal exam: Present soft Extremities Exam Extremities exam: Present full ROM and pedal edema (1+ bilaterally up to the mid legs) Back Exam Back exam: Present normal inspection and full ROM Neurological Exam Neurological exam: Present alert, oriented X3 and CN II-XII intact Psychiatric Psychiatric exam: Present normal affect and normal mood Skin Skin exam: Present warm, dry, intact and normal color Course Course Course Narrative: CXR is ordered for determining the etiology of shortness of breath. Quality Measures none Orders Category Date Time Status EKG (ED ONLY) *Do not use* NOW Care 05/19/25 00:32 Completed EKG (ED Only) Stat Exams 05/19/25 00:32 Draft XR chest 1V portable Stat Exams 05/19/25 01:23 Taken B-Type Natriuretic Peptide Stat Lab 05/19/25 01:35 Completed CBC Stat Lab 05/19/25 01:35 Completed Comprehensive Metabolic Panel Stat Lab 05/19/25 01:35 Completed Magnesium Stat Lab 05/19/25 01:35 Completed Troponin I Stat Lab 05/19/25 01:35 Completed Ondansetron Inj [Zofran Inj] Med 05/19/25 03:36 Discontinued 4 mg IVP X1 ONE Vital Signs Vital signs: Vital Signs Temperature 97.8 F 05/19/25 00:44 Pulse Rate 75 05/19/25 00:44 Respiratory Rate 20 05/19/25 00:44 Blood Pressure 116/62 05/19/25 00:44 Pulse Oximetry (%) 95 05/19/25 00:44 Oxygen Delivery Method Room Air 05/19/25 00:44 Shortness of Breath / Dyspnea MDM Narrative MDM Narrative:: Scribe Attestation: 05/19/25 Marj Ruggiero am scribing for and in the presence of Dr. Reveles. Patient data External records reviewed:: [facility] previous records (Per chart review, patient has no previous ED visits or admissions to this facility.) Clinical information provided by:: patient and family (daughter) Social determinants that could affect healthcare access:: none Patient has the following chronic illnesses:: CHF, HTN, aortic valve replacement, valvular disease, DM How is presenting disease/condition affected by chronic disease/condition?: exacerbated by Evaluation data The following diagnostics were reviewed and interpreted by me:: lab results, radiology exam(s) and EKG tracing(s) Lab and/or radiology exams considered but not ordered:: none Interpretation Summary: WBC normal, Platelets 121, Creatinine 2.0, Glucose 301, Magnesium normal, Troponin 0.057, BNP >3280. 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 EKG done at 0046, NSR, rate of 75, old LBBB, UT: 141, QTc: 481, no STEMI, according to my interpretation. Medications / Prescriptions Medications or Prescriptions considered but not ordered:: none Medication administrations:: Medication Administration History Discontinued Medications Ondansetron HCl (Ondansetron Inj 2 Mg/Ml Inj 2 Ml) 4 mg IVP X1 ONE; Protocol Stop: 05/19/25 03:37 Last Admin: 05/19/25 03:39 Dose: Not Given Documented By: Non-Admin Reason: Patient Refused see above Consultations Consultation(s) initiated? (list below): Yes Consultation #1 (Physician, Specialty, Details): Discussed case with the resident physician, attending Dr. Luther from Hospitalist service regarding admission. Discussed patients ED course, exam findings, labs, and radiology results. The Hospitalist agrees to accept the patient for admission. Time: 03:53 Diagnosis Shortness of Breath Differential Diagnosis: other (NSTEMI, STEMI, worsening aortic/mitral valve disease, CHF exacerbation, electrolyte abnormality) Most likely diagnosis given after review of the tests above:: see clinical impression below Admission Indicated Admission indicated?: indicated Admission Request Was there a request for admission?: Yes Admission Attestation Admission request attestation: Discussed case with [] from Hospitalist service regarding admission. Discussed patients ED course, exam findings, labs, and radiology results. The Hospitalist [agrees,declines] to accept the patient for admission. Disposition Plan Disposition Plan: Admit Discharge Plan Plan Patient Disposition: Admit Acute Care w/in Hospital Prescriptions/Referrals Prescriptions/Med Rec: No Action valsartan [Diovan] 80 MG tablet 80 mg PO QDAY Qty: 0 carvedilol [Coreg] 3.125 MG tablet 3.125 mg PO BID Qty: 0 simvastatin [Zocor] 20 MG tablet 20 mg PO HS Qty: 0 aspirin 81 MG tablet,chewable 81 mg PO QDAY Qty: 0 spironolactone 25 mg tablet 25 mg PO QDAY bumetanide 2 mg tablet 2 mg PO QDAY metformin 500 mg tablet 500 mg PO QDAY clopidogrel [Plavix] 75 mg tablet 75 mg PO QDAY Problem List Clinical Impression: Shortness of breath, CHF (congestive heart failure), Valvular heart disease Patient/Caregiver Discharge Instructions Print Language: Lithuanian Stand Alone Forms: Maye Award Info., Patient Portal Info Letter
--- NOTE | 2025-05-19 04:35 | ESHP_ITS ---
<Statement entered by Biju Luther MD - 05/19/25 06:30> I have discussed and was present for the essential components of the history, physical examination, diagnosis, and treatment plan with the resident. I agree with the patient's care as documented by the resident and amended herein by me. Biju Luther MD FACP. Documentation for date of: 05/19/25 HPI History of Present Illness Chief complaint: SOB History of present illness: 89-year-old female with past medical history of CAD s/p stents, aortic stenosis s/p valve replacement, HFpEF (EF 55%), and severe aortic regurgitation with ascending aortic dilation of 4.5 cm was admitted to hospital on 05/19/2025 after come to the ED with chief complaints of increased shortness of breath. Patient stated that she has been having shortness of breath for quite some time now, but that today it was too unbearable as she was laying down and she could not breathe at all due to shortness of breath. She also felt like she was having more difficulty breathing. She did mention that she has been using more pillows to sleep and that she gets very short of breath with minimal exertion. Patient also mention she was having some nausea and vomiting. Otherwise patient denies having any chest pain, productive sputum, cough, decreased urination, burning sensation urination, blood in the stools, blood in the urine, or fevers. Of note patient recently had a right heart cath for evaluation for possible aortic valve replacement via TAVR on 05/05/2025. At this time patient was found to have severe aortic valve regurgitation and ascending aorta dilation of 4.5 cm and nonobstructive coronary arteries. Patient was seen outpatient cardiology for possible TAVR procedure given that she was not a candidate for surgery given her age and multiple comorbidities. Patient had a recent ANTHONY around 2 days ago and she was scheduled for follow-up for her edge inker uppers on the sixth of this month. ED course: Initially came in afebrile and normotensive. Initial labs were relevant for normocytic normochromic anemia, thrombocytopenia, CORINNE, troponinemia, and elevated BNP. Initial imaging included EKG with looked unchanged from previous EKG, and chest x-ray which seems to have some vascular congestion. PMH: As above Surgical Hx: Aortic valve replacement and bowel obstruction s/p laparotomy Social Hx: Denies any illicit drugs, admits social drinking, smoker for 20 years around 3 cigarettes/day, but quit 40 years ago. Allergies: NKDA Medications: Aspirin, Bumex, carvedilol, Plavix, spironolactone Review of Systems Review of Systems Systems Reviewed: All systems reviewed, normal except as documented Past Medical History Past Medical History NEUROLOGIC: Negative Neurological Disorders CARDIAC: Positive Cardiac Disorders (sob), Hypercholesterolemia, Congestive Heart Failure, Valvular Heart Disease and Hypertension RESPIRATORY: Negative Chronic Obstructive Pulmonary Disease (COPD), Smoking or Smoking Exposure GASTROINTESTINAL: Negative Gastrointestinal Disorders GENITOURINARY: Negative Genitourinary Disorders or Renal Disease REPRODUCTIVE: Negative Pelvic Inflammatory Disease MUSCULOSKELETAL: Positive Osteoporosis; Negative Musculoskeletal Disorders ENDOCRINE: Positive Endocrine Disorders and Diabetes Mellitus Type 2; Negative Diabetes Mellitus Type 1 HEMATOLOGIC: Negative Blood Disorders OTHER HISTORY: Positive Hospitalization; Negative Blood Transfusions, Anesthesia Reactions or Cancer Surgical History SURGICAL: Positive Cardiac Surgery, Valve Replacement (2008), Cardiac Catheterization, Angiogram and Hysterectomy; Negative Endocrine Surgery, Abdominal Surgery or Joint Replacement Social History SMOKING STATUS: Never smoker Exam Vital Signs Temp Pulse Resp BP Pulse Ox O2 Del Method 97.9 F 57 L 20 124/56 L 98 Room Air 05/19/25 02:11 05/19/25 02:11 05/19/25 02:11 05/19/25 02:11 05/19/25 02:11 05/19/25 02:11 Narrative Exam General: A/O x3, no acute distress Eyes: PERRL, EOMI. Anicteric, vision grossly intact. Ears: No ear pain, no ear discharge, Hearing grossly intact. Nose: No nasal discharge. Mouth/Throat: Moist mucous membranes, no redness, no lesions. Neck: Neck supple, non-tender, no cervical lymphadenopathy. Lungs: Crackles TWAN, No accessory muscle use. Cardio: Normal S1/S2, regular rhythm, systolic murmur present, no JVD appreciated Abdomen: Soft, non-tender, no palpable masses, peristalsis present, no guarding or rebound. Extremities: Symmetrical, no significant deformities, no peripheral edema , non-tender, peripheral pulses presents. Skin: No rashes, no lesions, warm to touch. Neuro: No focal neurological deficits. motor and sensory intact Psych: Cooperative, appropriate mood and effect. Results: Labs 05/19/25 01:35 05/19/25 01:35 Labs: Short CBC 05/19/25 Range/Units 01:35 WBC 6.1 (3.6-11.0) Thou/mm3 Hgb 10.6 L (12.0-16.0) g/dL Hct 32.4 L (36.0-46.0) % Plt Count 121 L D (140-440) Thou/mm3 BMP 05/19/25 01:35 Sodium 137 Potassium 4.9 Chloride 100 Carbon Dioxide 26.3 BUN 57 H Creatinine 2.0 H Glucose 301 H Calcium 9.9 Cardiac Enzymes 05/19/25 Range/Units 01:35 Troponin I 0.057 H* (0.0-0.045) ng/mL Liver Function 05/19/25 Range/Units 01:35 Total Bilirubin 0.9 (0.3-1.2) mg/dL AST 31 (0-34) U/L ALT 38 (10-49) U/L Alkaline Phosphatase 110 (46-116) U/L Albumin 4.1 (3.4-4.8) gm/dL Quality Measures Quality Measures none Advance care planning discussed with:: patient and other (granddaughter) Medications Home Medications and Allergies Home Medications ?Medication ?Instructions ?Recorded ?Confirmed ?Type carvedilol 3.125 mg tablet (Coreg) 3.125 mg PO BID HEA RT #0 tabs 06/30/14 05/17/25 History simvastatin 20 mg tablet (Zocor) 20 mg PO HS CHOLESTER OL #0 tabs 06/30/14 05/17/25 History valsartan 80 mg tablet (Diovan) 80 mg PO QDAY HBP #0 t abs 06/30/14 05/17/25 History aspirin 81 mg chewable tablet 81 mg PO QDAY HEART ##0 09/05/14 05/17/25 History clopidogrel 75 mg tablet (Plavix) 75 mg PO QDAY 05/17/25 History metformin 500 mg tablet 500 mg PO QDAY 02/15/2504/20 History bumetanide 2 mg tablet 2 mg PO QDAY 05/15/25 History spironolactone 25 mg tablet 25 mg PO QDAY 05/15/25 History Allergies Allergy/AdvReac Type Severity Reaction Status Date / Time NKA* Allergy Uncoded 05/17/25 16:29 Visit Medications Acetaminophen (Acetaminophen 325 Mg Tablet) 650 mg PO Q6H PRN PRN Reason: Fever >100.4 Stop: 06/18/25 04:28 Acetaminophen (Acetaminophen 325 Mg Tablet) 650 mg PO Q6H PRN PRN Reason: PAIN SCALE 1-3 (mild Stop: 06/18/25 04:28 Hydrocodone Bitart/Acetaminophen (Hydrocodone/Apap 5/325 Tablet) 1 tab PO Q4HR PRN PRN Reason: PAIN SCALE 4-6 (Moderate Stop: 05/24/25 04:28 Dextrose (Dextrose 50%-Water Inj 50 Ml Syringe) 25 ml IV Q15MIN PRN PRN Reason: BG 50-70 responsive npo pt Stop: 06/18/25 04:28 Dextrose (Dextrose 50%-Water Inj 50 Ml Syringe) 50 ml IV Q15MIN PRN PRN Reason: BG <50 OR BG <70 & pt unresponsive Stop: 06/18/25 04:28 Glucagon (Glucagon Inj 1 Mg Vial) 1 mg IM Q15MIN PRN PRN Reason: BG <70, and no IV access Heparin Sodium (Porcine) (Heparin Sod Inj 5000 Unit/Ml Vial) 5,000 unit SC Q8HR VELMA Stop: 06/02/25 05:59 Insulin Human Lispro (Insulin Lispro (Admelog) 1 Unit/0.01 Ml Unit) 0 unit SC AC [facility]; Protocol Stop: 06/18/25 07:29 Ondansetron HCl (Ondansetron Inj 2 Mg/Ml Inj 2 Ml) 4 mg IVP Q8H PRN; Protocol PRN Reason: NAUSEA OR VOMITING Stop: 06/18/25 04:28 Discontinued Medications Ondansetron HCl (Ondansetron Inj 2 Mg/Ml Inj 2 Ml) 4 mg IVP X1 ONE; Protocol Stop: 05/19/25 03:37 Last Admin: 05/19/25 03:39 Dose: Not Given Assessment & Plan Plan 89-year-old female with past medical history of CAD s/p stents, aortic stenosis s/p valve replacement, HFpEF (EF 55%), and severe aortic regurgitation with ascending aortic dilation of 4.5 cm was admitted to hospital on 05/19/2025 for acute decompensated heart failure exacerbation and CORINNE. #Acute decompensated heart failure exacerbation #HFpEF (EF 55%) #NSTEMI likely type II demand ischemia #Hx of severe aortic regurgitation with ascending aortic dilation 4.5 cm #Hx of aortic stenosis s/p valve replacement Patient states that she has been having increased shortness of breath while laying flat and that tonight she could not even sleep due to shortness of breath. Patient recently had a heart cath on 05/15/2025 which did show severe aortic regurgitation with ascending aortic dilation of 4.5 cm, but no obstructive coronary arteries. Patient was being evaluated as outpatient for possible TAVR procedure Patient had ANTHONY around 2 days ago Patient has not gained weight, but has been having increased shortness of breath BNP above 3280 Chest x-ray showed vascular congestion Troponins were mildly elevated at 0.057, EKG did not show any acute ST changes and was unchanged from previous EKG. Plan: Given the patient's CORINNE we will hold off on diuresis for now as patient is not hypoxic or having increased work of breathing at this moment. Trend troponins Given high risk for PR will order EKG from 6 AM Daily weights Fluid restrictions Low-sodium diet Strict TK's Keep potassium magnesium above 4 and 2 respectively to avoid any further arrhythmias Ordered TSH, A1c, and lipid panel for cardiac risk restratification Cardiology consulted, appreciate recommendations #CORINNE Patient initially came in with a creatinine of 2 Patient's baseline creatinine is around 1-1.2 Patient did have right heart cath as well as diuretics which could have contributed to the patient's CORINNE Plan: Will hold off on IV fluids for now as patient is on heart failure exacerbation Avoid nephrotoxic agents Renally dose medication Will continue to monitor Chronic diseases: #Hx of DM2 #Hx of anemia A1c ordered for morning labs ISS and hypoglycemia protocol ordered Pending medication reconciliation Disposition: Patient admitted to telemetry for CHF exacerbation. Diet: Cardiac/renal GI prophylaxis: not indicate DVT prophylaxis: heparin sc Code: Limited (no chest compression) intubation okay Case disclosed with Attending Dr. Homa Hidalgo PGY2 Disclaimer: Even though this this note was dictated by speech recognition and even though it was carefully revised there may still be minor errors in pathology secretary due to voice recognition software.
[2025-05-19 05:52] LABS: Basophils # (Auto) 0.0 Thou/mm3 (0.0-0.2); Basophils % (Auto) 0 % (0-2.5); Eosinophils # (Auto) 0.0 Thou/mm3 (0.0-0.5); Eosinophils % (Auto) 0 % (0-10); Hematocrit 31.2 % (36.0-46.0); Hemoglobin 10.2 g/dL (12.0-16.0); Immature Granulocytes Auto 0.15 Thou/mm3 (0.00-0.00); Lymphocytes # (Auto) 0.5 Thou/mm3 (1.0-4.8); Lymphocytes % (Auto) 8 % (10-50); Mean Corpuscular HGB Conc 32.7 g/dl (31.0-37.0); Mean Corpuscular Hemoglobin 28.7 pg (25.0-35.0); Mean Corpuscular Volume 88 fL (80-100); Monocytes # (Auto) 1.4 Thou/mm3 (0.0-0.8); Monocytes % (Auto) 21 % (0-12); Neutrophils # (Auto) 4.7 Thou/mm3 (1.8-7.7); Neutrophils % (Auto) 69 % (37-80); Nucleated Red Blood Cell # 0.00 Thou/mm3 (0.00-0.00); Nucleated Red Blood Cell % 0 /100 WBC (0); Platelet Count 115 Thou/mm3 (140-440); RDW Standard Deviation 46.4 fL (36.4-46.3); Red Blood Count 3.55 Miln/mm3 (4.00-5.20); White Blood Count 6.9 Thou/mm3 (3.6-11.0)
--- NOTE | 2025-05-19 06:00 | EKG_ITS ---
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
[2025-05-19 06:15] LABS: Alanine Aminotransferase 32 U/L (10-49); Albumin, Serum 3.8 gm/dL (3.4-4.8); Albumin/Globulin Ratio 1.5 (1.2-2.2); Alkaline Phosphatase 97 U/L (46-116); Anion Gap 13 (7-16); Aspartate Amino Transferase 23 U/L (0-34); BUN/Creatinine Ratio 28 Ratio (12-20); Bilirubin,Total 0.9 mg/dL (0.3-1.2); Blood Urea Nitrogen 59 mg/dL (9-23); Calcium 9.2 mg/dL (8.3-10.6); Calcium (Corrected) 9.4 mg/dL (8.5-10.1); Carbon Dioxide 23.7 mMol/L (20.0-31.0); Cardiac Risk Estimate 2.4 RATIO (3.7-5.6); Chloride 99 mMol/L (98-107); Cholesterol 102 mg/dL (132-200); Creatinine (Component) 2.1 mg/dL (0.6-1.3); Estimated Creatinine Clearance 14.6 mL/min (>60); Globulin 2.5 gm/dL (2.3-3.5); Glucose 314 mg/dL (74-106); HDL Cholesterol 42 mg/dL (40-60); LDL Cholesterol,Calculated 45 mg/dL (0-130); Magnesium 2.6 mg/dL (1.6-2.6); Osmolality,Calculated 300 (275-295); Potassium 5.0 mMol/L (3.4-5.1); Sodium 136 mMol/L (136-145); Thyroid Stimulating Hormone 7.59 uIU/mL (0.55-4.78); Total Protein 6.3 gm/dL (5.7-8.2); Triglycerides 74 mg/dL (30-150); Troponin I 0.045 ng/mL (0.0-0.045); eGFR 22 See Note
[2025-05-19 06:22] LABS: Glucose Estimated Average 186 mg/dL (80-131); Hemoglobin A1C 8.1 % Hgb (4.8-6.0)
--- NOTE | 2025-05-19 06:45 | PC.NURSE ---
Pt arrived from ED at 0634, transferred from [facility] to bed safely. Vitals taken and documented, Telemonitor connected, handoff provided to Winter CRISTINA
[2025-05-19] MEDS: INSULIN LISPRO (AdmeLOG) 1 UNIT/0.01 ML UNIT SC ×3 (07:49→16:54)
[2025-05-19] MEDS: HEPARIN SOD INJ 5000 UNIT/ML VIAL SC ×3 (07:50→21:11)
--- NOTE | 2025-05-19 10:17 | ESPR_ITS ---
<Statement entered by Goldie Murphy MD - 05/19/25 23:03> Patient is a 89-year-old female with past medical history significant for CAD status post stent, aortic stenosis status post valve replacement in 2006, HFpEF and severe aortic regurgitation presented with worsening shortness of breath. Patient is a longtime patient of Dr. Bowie who recently referred the patient to Dr. Casillas for TAVR. Patient has worsening symptoms and was unable to even walk a few steps. Patient underwent ANTHONY awaiting final report. Per cardiology due to patient's age and comorbidities is not a candidate for TAVR. However patient denies any chest pain, palpitations or dizziness. Patient does not appear to be in acute CHF exacerbation currently saturating on room air and no crackles are heard, and no lower extremity edema is appreciated. Per cardiology will continue the Bumex 2 mg daily and will continue dual antiplatelet therapy. If patient's blood pressure is tolerable tomorrow then will resume patient's home beta-sari. Although patient has a mild CORINNE with possible underlying CKD we will continue to closely monitor and avoid nephrotoxins. Cardiology is following, will keep monitoring for symptoms improvement and further recommendations. Patient was seen and examined by me personally. I have directly supervised and reviewed documentation by the team resident and agree with its findings with the above exceptions/and additional findings. ------- Plan of care was discussed with the attending, Dr. Dalila Murphy, PGY-2 Documentation for date of: 05/19/25 Subjective Subjective Interval history: Overnight events: Patient was admitted overnight. Patient was seen and examined at bedside. AM vitals and labs reviewed.. Patient slightly uncomfortable breathing on room air, but good O2 sat on telebox. Patient denies any chest pain. Patient has no complaints other than feeling tired and short of breath. Discussed with the patient that cardiology was consulted to assist with care. Review of systems otherwise negative except for what is mentioned above. Exam Vital Signs Temp Pulse Resp BP Pulse Ox O2 Del Method 97.0 F 74 19 131/54 H 96 Room Air 05/19/25 08:00 05/19/25 08:00 05/19/25 08:00 05/19/25 08:00 05/19/25 08:00 05/19/25 08:00 Narrative Exam Physical Exam: General: Alert, no acute distress. Skin: Warm, dry, intact, no obvious rash. Head: Normocephalic, atraumatic. Eye: Normal conjunctiva, PERRL. Cardiovascular: Regular rate, irregular rhythm, no murmur, +S1/S2. Respiratory: Lungs are clear to auscultation, respirations unlabored, no crackles, no wheezing. Gastrointestinal: Soft, nontender, non-distended. No guarding or rebound tenderness. Extremities: No edema, no cyanosis, no clubbing. 2+ radial pulse bilaterally, 2+ pedal pulse bilaterally. Neuro: No focal deficits observed. Conversant, moving all extremities. No overt cerebellar signs/incoordination. Psychiatric: Cooperative, appropriate affect. Objective Labs 05/20/25 04:55 05/20/25 04:55 Labs: Laboratory Results - last 24 hr 05/19/25 05/19/25 01:35 05:25 WBC 6.1 6.9 RBC 3.68 L 3.55 L Hgb 10.6 L 10.2 L Hct 32.4 L 31.2 L MCV 88 88 MCH 28.8 28.7 MCHC 32.7 32.7 RDW Std Deviation 46.5 H 46.4 H Plt Count 121 L D 115 L Neut % (Auto) 58 69 Lymph % (Auto) 11 8 L [place] % (Auto) 30 H 21 H Eos % (Auto) 0 0 Baso % (Auto) 0 0 Neut # (Auto) 3.6 4.7 Lymph # (Auto) 0.6 L 0.5 L [place] # (Auto) 1.8 H 1.4 H Eos # (Auto) 0.0 0.0 Baso # (Auto) 0.0 0.0 Immature Gran # (Auto) 0.08 H 0.15 H Absolute Nucleated RBC 0.00 0.00 Immature Gran % 1 H 2 H Nucleated RBC % 0 0 Sodium 137 136 Potassium 4.9 5.0 Chloride 100 99 Carbon Dioxide 26.3 23.7 Anion Gap 11 13 BUN 57 H 59 H Creatinine 2.0 H 2.1 H Estim Creat Clear Calc 15.4 L 14.6 L eGFR 24 L 22 L BUN/Creatinine Ratio 29 H 28 H Glucose [address] Glu mg/dL 186 H Hemoglobin A1c 8.1 H Calculated Osmolality 300 H 300 H Calcium 9.9 9.2 Corrected Calcium 9.9 9.4 Magnesium 2.5 2.6 Total Bilirubin 0.9 0.9 AST 31 23 ALT 38 32 Alkaline Phosphatase 110 97 Troponin I 0.057 H* 0.045 B-Natriuretic Peptide > 3280 H* Total Protein 6.8 6.3 Albumin 4.1 3.8 Globulin 2.7 2.5 Albumin/Globulin Ratio 1.5 1.5 Triglycerides 74 Cholesterol 102 L LDL Cholesterol, Calc 45 HDL Cholesterol 42 Cholesterol/HDL Ratio 2.4 L TSH 7.59 H Quality Measures Quality Measures none Advance care planning discussed with:: patient Assessment & Plan Assessment Current Active Medications: Generic Name Dose Route Start Last Admin Trade Name Freq PRN Reason Stop Dose Admin Acetaminophen 650 mg 05/19/25 04:29 Acetaminophen 325 Mg Tablet PO 06/18/25 04:28 Q6H PRN Fever >100.4 Acetaminophen 650 mg 05/19/25 04:29 Acetaminophen 325 Mg Tablet PO 06/18/25 04:28 Q6H PRN PAIN SCALE 1-3 (mild Hydrocodone Bitart/Acetaminophen 1 tab 05/19/25 04:29 Hydrocodone/Apap 5/325 Tablet PO 05/24/25 04:28 Q4HR PRN PAIN SCALE 4-6 (Moderate Dextrose 25 ml 05/19/25 04:29 Dextrose 50%-Water Inj 50 Ml Syringe IV 06/18/25 04:28 Q15MIN PRN BG 50-70 responsive npo pt Dextrose 50 ml 05/19/25 04:29 Dextrose 50%-Water Inj 50 Ml Syringe IV 06/18/25 04:28 Q15MIN PRN BG <50 OR BG <70 & pt unresponsive Glucagon 1 mg 05/19/25 04:29 Glucagon Inj 1 Mg Vial IM Q15MIN PRN BG <70, and no IV access Heparin Sodium (Porcine) 5,000 unit 05/19/25 06:00 05/19/25 07:50 Heparin Sod Inj 5000 Unit/Ml Vial SC 06/02/25 05:59 5,000 unit Q8HR VELMA Administration Insulin Human Lispro 0 unit 05/19/25 08:18 Insulin Lispro (Admelog) 1 Unit/0.01 Ml Unit SC 06/18/25 07:29 AC VELMA Protocol Ondansetron HCl 4 mg 05/19/25 04:29 Ondansetron Inj 2 Mg/Ml Inj 2 Ml IVP 06/18/25 04:28 Q8H PRN NAUSEA OR VOMITING Protocol Plan Mrs. Diaz is an 89 year old female with a history of CAD status post stents 01/19/2025, aortic stenosis with valve replacement, HFpEF EF 55%, severe aortic regurgitation with ascending aortic dilation 4.5 cm, CHF, T2DM, and HTN who presented with worsening shortness of breath. Patient was admitted for severe aortic regurgitation. 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 Bowie showed evidence of severe aortic regurgitation, which is new compared to her previous study. The echocardiogram also showed severe pulmonary hypertension and severe tricuspid regurgitation due to left heart failure. Left ventricle ejection fraction estimated to be 55 to 60%. Her conference producer believes that this is due to a malfunctioning aortic prosthetic valve, which is 17 years old. Her conference producer plan to consult Dr. Wade for TAVR procedure. Given the patient's past history of CHF and initial BNP of 2280 in ED, there was some suspicion for possible fluid overload. However the patient does not look fluid overloaded on exam and ultrasound, suggesting that this is symptomatic due to severe aortic regurgitation secondary to her prosthetic valve dysfunction. ? Ultrasound of IVC, portal vein, and right kidney did not show signs of fluid overload ? Patient had initial troponin of 0.057 in the ED, subsequent troponins negative ? Keep potassium and magnesium above 4 and 2 respectively ? Daily weights, fluid restriction, strict TK's ? Lipid panel ordered ? 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 This is most likely due to decreased blood flow from her severe aortic regurgitation. Will not perform IV fluid resuscitation at this time due to concern of possibly causing fluid overload. ? Will hold patient's home bumetanide 2 mg daily ? Avoid nephrotoxic agents, renally dose medications, will continue to monitor ?Consulted nephrology, appreciate recommendations #Type 2 diabetes mellitus #Hyperglycemia Patient had initial glucose of 301 in the ED, followed by an a.m. reading of 314. Hemoglobin A1c ordered on admission resulted as 8.1. Patient has a history of type 2 diabetes mellitus, but does not take insulin at home. ? Started patient on sliding scale insulin ? Change diet to cardiac diet with consistent low-carb ? Will continue to monitor blood glucose to see if further insulin management is needed #Suspected hypothyroidism Patient had TSH of 7.59 in on 05/19. ? Free T4 labs ordered #Hypertension Patient has reported history of hypertension. DVT Prophylaxis: Heparin GI Prophylaxis: N/A Bowel: N/A Diet: Cardiac diet with renal, fluid restriction 1800cc, and consistent low carb modifications Smith: N/A Lines: Peripheral IV Antibiotics: N/A Code Status: FULL Reason for Hospitalization: Severe aortic regurgitation Other Barriers to Discharge: Cardiology recommendations Patient plan of care was discussed with the senior resident Dr. Murphy (PGY-3) and attending physician Dr. Dalila Vasques, PGY1 Attending Provider Attestation/Addendum I attest that I was physically present for the evaluation, physical examination, lab and imaging review of the patient with the residents. I discussed the case with the residents and agree with the findings and plans of care as documented above. Patient is an 89 years old female with past medical history of CAD status post stents, aortic stenosis status post prosthetic valve replacement, HFpEF, severe aortic regurgitation who presented to the ED with complaint of shortness of breath. She was admitted overnight with a concern of decompensated heart failure exacerbation and acute kidney injury. At bedside today, patient states she is slightly more comfortable compared to yesterday. But continues to have orthopnea and PND. Has minimal crackles on right lung base but no pedal edema. Saturating well on room air. Discussed with cardiology, patient has been being considered for TAVR due to worsening aortic regurgitation Recommended to start Bumex IV 2 mg x 1, resume patient's beta-sari tomorrow if blood pressure allows and closely monitor kidney function, appreciate recommendations. Patient's BUN/creatinine is 59/2.1, slightly worsened compared to yesterday, baseline creatinine appears to be around 1.2-1.3, we will obtain nephrology consult. Beatriz Conner MD
--- NOTE | 2025-05-19 10:55 | PC.SS ---
follow up note: Cardio consulting. Pt requires IV diuretics.
[2025-05-19 11:02] LABS: Troponin I 0.041 ng/mL (0.0-0.045)
--- NOTE | 2025-05-19 12:15 | PC.SS ---
SS met with patient regarding her d/c plan. Pt is alert/oriented. Pt was admitted for CHF Exacerbation. Pt confirmed demographic and contact information is correct on facesheet. Pt resides alone. Pt ambulates independently without assistance or DME. Pt is ok with all ADLs. Patient?s pharmacy of choice is [facility] [employer]. Pt named her granddaughter, Darcie Presley medical decision maker if she is unable. SS provided verbal options for d/c to home or SNF. Patient?s choice is to return home upon d/c. Pt states her granddaughter will help care for her at home. Pt states she is diabetic but does not have glucometer. DietitianLouis is aware. Pt states she followed up with PCP 6 months ago. D/C plan: Return home Next of Kin: Darcie Chavez, granddaughter, phone# [phone] PCP: Dr. Marc Fuentes Address: Correct on facesheet
[2025-05-19] MEDS: BUMETANIDE INJ 0.25 MG/ML VIAL 4 ML 2 MG IVP (16:19)
--- NOTE | 2025-05-19 18:03 | ESCONSULT_ITS ---
<Statement entered by Cecily Bowie MD - 05/20/25 16:05> I personally examined the patient who is very well-known to me alongside history of aortic valve replacement Biocor #21 valve in 2008 and recent PCI stent placed in the proximal LAD couple of months ago has recurrent shortness of breath progressive shortness of breath found to have severe aortic valve regurgitation prosthetic valve dysfunction will require TAVR procedure interventional team has been consulted already discussed the patient with because of the heart hospital team [facility] will be scheduled for a TAVR procedure within next 3 weeks continue diuretic therapy despite elevated creatinine I also ordered home oxygen. Patient will be discharged when she is stable to be on home oxygen and diuretics until valve replacement is performed. Evaluate the patient with resident physician Dr. Hernán Astorga with the treatment plan recommendation as documented by resident physician HPI Data of Consult Requesting Physician: Beatriz Conner MD Admitting Provider: Biju Luther MD Attending Provider: Beatriz Conner MD Primary Care Provider: Marc Fuentes MD Consult Narrative History of present illness: No acute overnight event. Examined in room. She is sitting up in chair, on room air, feels well today. Denies fever, chills, headaches, chest pain, sob, cough, GI or urinary symptoms. Ambulating around the room without significant sob. cc:: cc: Beatriz Conner MD Review of Systems Constitutional Comments: GENERAL * Normal appearing elderly female, on room air, speaks in full sentences, NAD. HEENT * NCAT.?RM. Oral mucosa is moist. Patent Nares NECK * Supple, nontender, no JVD. CHEST * RRR, loud aortic systolic and diastolic murmur consistent with aortic stenosis and regurgitation, respectively. * CTAB, no w/r/r, symmetrical expansion. ABDOMEN * Soft, flat, nontender. No guarding/rebound tenderness/masses. * Bowel sounds presents EXTREMITIES * Trace anam LE pitting edema. SKIN * Warm and dry, no jaundice/rashes. NEUROMUSCULAR * No lumbar or midline, no CVA, no paraspinal muscle spasm or tenderness. * Moves all 4 extremities well, with full ROM and good CSM. * CABRERA x4, CN II-XII grossly intact. * No focal neurologic deficits. PSYCHIATRY * Normal mood and affect, cooperative, no SI or HI or hallucinations. Exam Vital Signs Temp Pulse Resp BP Pulse Ox O2 Del Method 97.0 F 62 19 104/56 L 98 Room Air 05/19/25 16:00 05/19/25 16:19 05/19/25 16:00 05/19/25 16:19 05/19/25 16:00 05/19/25 16:00 Narrative Exam GENERAL * Normal appearing elderly female, on room air, speaks in full sentences, NAD. HEENT * NCAT.?RM. Oral mucosa is moist. Patent Nares NECK * Supple, nontender, no JVD. CHEST * RRR, loud aortic systolic and diastolic murmur consistent with aortic stenosis and regurgitation, respectively. * CTAB, no w/r/r, symmetrical expansion. ABDOMEN * Soft, flat, nontender. No guarding/rebound tenderness/masses. * Bowel sounds presents EXTREMITIES * 1+ anam LE pitting edema. SKIN * Warm and dry, no jaundice/rashes. NEUROMUSCULAR * No lumbar or midline, no CVA, no paraspinal muscle spasm or tenderness. * Moves all 4 extremities well, with full ROM and good CSM. * CABRERA x4, CN II-XII grossly intact. * No focal neurologic deficits. PSYCHIATRY * Normal mood and affect, cooperative, no SI or HI or hallucinations. Results Labs 05/20/25 04:55 05/20/25 04:55 Labs: Short CBC 05/19/25 05/19/25 Range/Units 01:35 05:25 WBC 6.1 6.9 (3.6-11.0) Thou/mm3 Hgb 10.6 L 10.2 L (12.0-16.0) g/dL Hct 32.4 L 31.2 L (36.0-46.0) % Plt Count 121 L D 115 L (140-440) Thou/mm3 BMP 05/19/25 05/19/25 01:35 05:25 Sodium 137 136 Potassium 4.9 5.0 Chloride 100 99 Carbon Dioxide 26.3 23.7 BUN 57 H 59 H Creatinine 2.0 H 2.1 H Glucose 301 H 314 H Calcium 9.9 9.2 Cardiac Enzymes 05/19/25 05/19/25 05/19/25 Range/Units 01:35 05:25 10:35 Troponin I 0.057 H* 0.045 0.041 (0.0-0.045) ng/mL Liver Function 05/19/25 05/19/25 Range/Units 01:35 05:25 Total Bilirubin 0.9 0.9 (0.3-1.2) mg/dL AST 31 23 (0-34) U/L ALT 38 32 (10-49) U/L Alkaline Phosphatase 110 97 (46-116) U/L Albumin 4.1 3.8 (3.4-4.8) gm/dL Quality Measures Quality Measures none Advance care planning discussed with:: patient Medications Home Medications and Allergies Home Medications ?Medication ?Instructions ?Recorded ?Confirmed ?Type simvastatin 20 mg tablet (Zocor) 20 mg PO HS CHOLESTER OL #0 tabs 06/30/14 05/19/25 History valsartan 80 mg tablet (Diovan) 80 mg PO QDAY HBP #0 t abs 06/30/14 05/19/25 History aspirin 81 mg chewable tablet 81 mg PO QDAY HEART ##0 09/05/14 05/19/25 History clopidogrel 75 mg tablet (Plavix) 75 mg PO QDAY 05/19/25 History metformin 500 mg tablet 500 mg PO QDAY 02/15/2511/12 History bumetanide 2 mg tablet 2 mg PO QDAY 05/15/25 History spironolactone 25 mg tablet 25 mg PO QDAY 05/15/2511/12 History carvedilol 3.125 mg tablet 3.125 mg PO Q8H 05/19/25 History Allergies Allergy/AdvReac Type Severity Reaction Status Date / Time NKA* Allergy Uncoded 05/17/25 16:29 Visit Medications Acetaminophen (Acetaminophen 325 Mg Tablet) 650 mg PO Q6H PRN PRN Reason: Fever >100.4 Stop: 06/18/25 04:28 Acetaminophen (Acetaminophen 325 Mg Tablet) 650 mg PO Q6H PRN PRN Reason: PAIN SCALE 1-3 (mild Stop: 06/18/25 04:28 Hydrocodone Bitart/Acetaminophen (Hydrocodone/Apap 5/325 Tablet) 1 tab PO Q4HR PRN PRN Reason: PAIN SCALE 4-6 (Moderate Stop: 05/24/25 04:28 Dextrose (Dextrose 50%-Water Inj 50 Ml Syringe) 25 ml IV Q15MIN PRN PRN Reason: BG 50-70 responsive npo pt Stop: 06/18/25 04:28 Dextrose (Dextrose 50%-Water Inj 50 Ml Syringe) 50 ml IV Q15MIN PRN PRN Reason: BG <50 OR BG <70 & pt unresponsive Stop: 06/18/25 04:28 Glucagon (Glucagon Inj 1 Mg Vial) 1 mg IM Q15MIN PRN PRN Reason: BG <70, and no IV access Heparin Sodium (Porcine) (Heparin Sod Inj 5000 Unit/Ml Vial) 5,000 unit SC Q8HR VELMA Stop: 06/02/25 05:59 Last Admin: 05/19/25 14:28 Dose: 5,000 unit Insulin Human Lispro (Insulin Lispro (Admelog) 1 Unit/0.01 Ml Unit) 0 unit SC AC [facility]; Protocol Stop: 06/18/25 07:29 Last Admin: 05/19/25 16:54 Dose: 2 unit Ondansetron HCl (Ondansetron Inj 2 Mg/Ml Inj 2 Ml) 4 mg IVP Q8H PRN; Protocol PRN Reason: NAUSEA OR VOMITING Stop: 06/18/25 04:28 Discontinued Medications Bumetanide (Bumetanide Inj 0.25 Mg/Ml Vial 4 Ml) 2 mg IVP QDAY [facility] Stop: 06/19/25 08:59 Bumetanide (Bumetanide Inj 0.25 Mg/Ml Vial 4 Ml) 2 mg IVP QDAY VELMA Stop: 06/18/25 14:31 Bumetanide (Bumetanide Inj 0.25 Mg/Ml Vial 4 Ml) 2 mg IVP X1 ONE Stop: 05/19/25 14:40 Bumetanide (Bumetanide Inj 0.25 Mg/Ml Vial 4 Ml) 2 mg IVP X1 STA Stop: 05/19/25 14:40 Last Admin: 05/19/25 16:19 Dose: 2 mg Insulin Human Lispro (Insulin Lispro (Admelog) 1 Unit/0.01 Ml Unit) 0 unit SC AC [facility]; Protocol Stop: 06/18/25 07:29 Last Admin: 05/19/25 07:49 Dose: 3 unit Ondansetron HCl (Ondansetron Inj 2 Mg/Ml Inj 2 Ml) 4 mg IVP X1 ONE; Protocol Stop: 05/19/25 03:37 Last Admin: 05/19/25 03:39 Dose: Not Given Assessment & Plan Plan 89-year-old female with a history of CAD S/P stent 2006 and double stent in 02/2025, aortic stenosis s/p valve replacement in 2006, HFpEF, and severe aortic regurgitation with ascending aortic dilation was admitted on 05/19/2025 for sob. Acute left heart failure Aortic regurgitation, severe, symptomatic Aortic stenosis, severe, symptomatic HFpEF EEF 55% Hx of severe aortic regurgitation with ascending aortic dilation Hx of aortic stenosis s/p valve replacement (2006) NSTEMI likely type II demand ischemia (resolved) Multivessel CAD s/p stents (2006 and 02/2025) Presenting with 1-2 weeks of worsening sob, elevated BNP, CXR showing vascular congestions. Has 1+ anam LE edema but clear lung sounds without wheezing or crackles. Had mild trop elevation without relevant changes on EKG, no reported chest pain. There is a left bundle branch block on EKG which is consistent with previous EKG. Cath was done recently showing severe aortic valve regurgitation and ascending aorta dilation of 4.5 cm and nonobstructive coronary arteries. Her symptoms (sob) most consistent with above findings, i.e. poor transaortic flow with leading to left heart failure with elevated LV pressures. She is currently being evaluated for TAVR. TG 74, Cholesterol 102, LDL 45, HDL 42. She needs volume status optimization, decrease intravascular volume with the goal of decreasing LV preload, which in turn will lower LV pressures and help relieve congestion and prevent pulmonary edema and renal congestion. Ultimately she needs TAVR for complete resolution of symptoms. 05/20/2025 feels well today. Symptoms improved, on room air without sob at rest. Tolerating diuresis, renal function stable. She has oxygen supplies at home. Maybe discharged on BUMEX 2 mg daily and PLAVIX. ? Continue BUMEX 2 mg daily ? Continue home PLAVIX and STATIN ? Consider resuming home BB if BP allows ? Maintain K>4, and Mag >2 CORINNE, pre-renal azotemia (stable) Possible CKD 3B BUN 50s, CR 2.0 with baseline 1.3, EFGR 22 with baseline around 30-40. CORINNE is multifactorial, caused by decreased renal perfusion due to low cardiac output, increased renal venous pressure from congestion. Anticipate improvement with diurestis. ? Diuresis as above. ? Daily labs ? Avoid nephrotoxins Other problems managed by primary team Suspected hypothyroidism with TSH 7.59 HTN T2DM with A1C 8.1 Case was discussed with attending physician, Dr. Bowie. Hernán Pisano, DO PGY II This document was transcribed using voice recognition technology. Minor inaccuracies may be present.
--- NOTE | 2025-05-19 21:28 | ESCONSULT_ITS ---
<Statement entered by Cyril Wade MD - 05/23/25 02:35> I have personally seen and examined the patient separately on the above date of service and discussed the plan of care with the resident. I reviewed the resident Dr. De Jesus consultation progress note and agree with the resident findings and plan in the note above and have also edited the documentation to reflect my findings and plan. 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 Patient is a long-term patient of Dr. Bowie who has been following her for more than 20 to 25 years. She did have an bioprosthetic aortic valve replacement for severe aortic stenosis in 2006 with the at [facility] #Biocor 21 mm which has been functioning well until recently. Patient has been having shortness of breath on exertion for the past few months. Patient did have a coronary angiogram which showed severe LAD stenosis and PCI performed on 01/19/2025 but in spite of that patient continued to have worsening shortness of breath on exertion and had admission to the emergency department requiring IV Lasix after which patient had a repeat echocardiogram in his office which showed patient had severe AI along with mild aortic stenosis and left normal EF. Patient was thought to have degenerative etiology for her high aortic regurgitation of the bioprosthetic arctic valve. Left and right heart cardiac testing was performed on 05/15/2025 which showed patent stents in the LAD from 2006 as well as 2024 and showed severe AI also on the cardiac catheterization. LVEDP was elevated at 36 and RHC showed elevated pressures PCWP was 22, mean PA was 39 mmHg and mean RA was 10 mmHg low cardiac output and low cardiac index was noted.. Dr. Bowie discussed with me for possible TAVR given the severity and ANTHONY was performed by me on 05/17/2025 Normal LV size and wall thickness. Estimated EF at 55-60%. 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 Central AI . There is no evidence of prolapse or flail leaflets. No eveidence of any abcess. Mostly degenerative etiology. Ascending aortic dilataion noted - moderate at 4.5 cm Moderate MR. MV PISA regurgitant volume is 43.8 cm?. MV PISA effective regurgitant orifice (ERO) is 0.27 cm?. Normal RV size and function. Modertae to severe TR. RSVP 60-70 mmhg Bubble study negative for PFO/ASD and no LA/ NICOLA thrombus. Patient apparently was with her family yesterday and started having worsening shortness of breath and could not sleep at night and hard to sit up height 6 feet and orthopnea and tried to use pillows for sleeping in the car shortness of breath is worsened but she could not even walk a few steps to the washroom and hence came to the emergency department for further evaluation. 1. Acute congestive heart failure in the setting of severe AI mostly secondary to degenerative bioprosthetic aortic valve. 2. 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 Acute kidney injury mostly secondary to cardiorenal syndrome in the setting of CHF 4. Mildly elevated troponins-secondary to NSTEMI type II from supply/demand mismatch and CHF exacerbation 5. CAD s/p PCI to LAD in 2006 and January 2025-patent stents in Couple of days ago 6. Severe aortic stenosis status post bioprosthetic Biocor 21 mm valve placed in 2006 7. Moderately dilated ascending aorta at 4.5 cm 8. 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 Mild to moderate PAH 10. Type 2 diabetes mellitus 1. Essential hypertension 12. Hyperlipidemia Patient presented with acute shortness of breath and mostly secondary to severe AI as patient also has orthopnea on presentation. Patient did have recent left and right heart cardiac cath 3 days before this admission which showed elevated right heart pressures with LVEDP of 36 mmHg and PCWP of 22 mmHg and mean PAH was 39 mmHg and mean RA of 10 mmHg. Patient is in acute congestive heart failure secondary to severe AI. Patient was on Bumex 2 mg once daily along with spironolactone but in spite of that patient appears to be fluid overloaded and hence we will started Bumex 2 mg IV for now. Kidney function is elevated with a creatinine of 2.0 and her baseline creatinine is around 1.2 recently indicating cardiorenal syndrome and recommend aggressive diuresis for now Bumex 2 mg IV twice daily. Continue to monitor renal functions closely. Strict input output, daily weights and 2 g sodium diet. Presentation is consistent with heart failure secondary to severe AI which also is causing the moderate MR and elevated pulmonary artery pressures with worsening TR from the same. Patient will need aggressive diuresis for now and will need valve replacement. She is not a surgical candidate and will be an ideal candidate for valve in valve TAVR in addition to fracturing the old valve. Discussed in detail with the family as well as the granddaughter who is at bedside and is a nurse. Explained the risk benefits and alternatives of performing a TAVR valve in valve procedure for the patient and risks of bleeding, heart attack, stroke, pacemaker, pericardial effusion, heart attack and in detail. Explained that she is a very high risk for complications given her multiple comorbidities age and the complex procedures. Patient and family including the granddaughter are in agreement and will start the process. Called the TAVR team guide Shira Samuels at [facility]. Patient will need a CT TAVR as well as a cardiothoracic surgery appointment as part of the workup which has been arranged for next week after she gets discharged from here after appropriate treatment of the CHF. Once the workup is completed including the above appointments then we will discuss the patient in the structural heart team conference regarding eligibility and final planning for the valve in valve TAVR. Mildly elevated troponins mostly secondary to type II NSTEMI in the setting of acute CHF exacerbation. Patient did have a cardiac As noted above couple of days ago and showed patent stents in the LAD and rest of arteries only showed mild disease. Recommend no further ischemic workup. Continue aspirin Plavix high intensity statin for now. Management of rest of the medical conditions as per primary team and other consultants. Thank you for the consult and allowing me to participate in the care of the patient. Cardiology will continue to follow. Cyril Wade M.D. Interventional Cardiology HPI Data of Consult Requesting Physician: Beatriz Conner MD Admitting Provider: Biju Luther MD Attending Provider: Cyril Wade MD Primary Care Provider: Marc Fuentes MD Consult Narrative History of present illness: 89F with MHx of CAD s/p stents x3 in February 2007 and January 2025, aortic stenosis s/p valve replacement in 2006, HFpEF (EF 55%), and severe aortic regurgitation with ascending aortic dilation of 4.5 cm was admitted to hospital on 05/19/2025 for worsening SOB at rest concerning for ADHF. Pt admits to chronic exertional SOB, but found herself in marked dyspnea in bed at night yesterday, to the point that she could not sleep the night. Patient admits to orthopnea, and lies on 4 pillows when sleeping. . Pt saturates 98% on RA, although she states that she has difficulty breathing. Currently, walking to and using the washroom adjacent to her hospital room is enough to make her SOB.? Patient denies having any chest pain, palpitations, productive sputum, cough, decreased urination, burning sensation urination, blood in the stools, blood in the urine, or fevers. Of note patient recently had a right heart cath for evaluation for possible aortic valve replacement via TAVR on 05/15/2025. At this time patient was found to have severe aortic valve regurgitation and ascending aorta dilation of 4.5 cm and nonobstructive coronary arteries. Patient was seen outpatient cardiology for possible TAVR procedure given that she was not a candidate for surgery given her age and multiple comorbidities. Patient had a recent ANTHONY around 2 days ago and she was scheduled for follow-up with her identity access management architect on the sixth of this month. Initial labs in ED were relevant for normocytic normochromic anemia, thrombocytopenia, CORINNE, troponinemia, and elevated BNP. Initial imaging included EKG which looked unchanged from previous EKG, and chest x-ray which seems to have some vascular congestion. PMHx: Hypertension, HFpEF, CAD, severe AR, aortic dilation, PSHx: Aortic valve replacement, but quit 40 years ago. Bowel obstruction s/p laparotomy SHx: Smoker for 20 years around 3 cigarettes/day. Denies any illicit drugs, admits social drinking, Allergies: NKDA Medications: Aspirin, Bumex, carvedilol, Plavix, spironolactone cc:: cc: Beatriz Conner MD Exam Vital Signs Temp Pulse Resp BP Pulse Ox O2 Del Method 96.9 F 60 19 119/46 L 97 Room Air 05/19/25 20:00 05/19/25 20:00 05/19/25 20:00 05/19/25 20:00 05/19/25 20:00 05/19/25 20:00 Narrative Exam General: Alert and oriented x3, No apparent distress. Skin: Intact, Warm, no rashes. HEENT: Normocephalic, Atraumatic. Normal neck range of motion, Supple. Trachea midline. Respiratory: Lungs are clear to auscultation, Breath sounds are equal bilaterally with equal chest expansion. Cardiovascular: RRR, normal S1, S2. +Early diastolic murmur. Distal pulses 2+ Abdomen: Abdomen soft, non-distended, without erythema, or lesions. Normotensive bowel sounds x4. Percussion tympanic. Palpation nontender in all four quadrants. No organomagely. No guarding or rebound present. Musculoskeletal/Extremities: No erythema, swelling, tenderness of any joints. No edema of BLE. DP pulses +2/3 b/l. Full active ROM of all four extremities. Neurologic: NEURO: Oriented x3, cranial nerves II to XII grossly intact. Muscle strength 5/5 on UE and LE b/l, Moves extremities x4. Sensation intact to gross touch along C6-T1 and L2-S1 dermatomes. No focal neurologic deficits noted Psych: Thoughts linear and responses appropriate. Results Labs 05/21/25 05:22 05/21/25 05:22 Labs: Short CBC 05/19/25 05/19/25 Range/Units 01:35 05:25 WBC 6.1 6.9 (3.6-11.0) Thou/mm3 Hgb 10.6 L 10.2 L (12.0-16.0) g/dL Hct 32.4 L 31.2 L (36.0-46.0) % Plt Count 121 L D 115 L (140-440) Thou/mm3 BMP 05/19/25 05/19/25 01:35 05:25 Sodium 137 136 Potassium 4.9 5.0 Chloride 100 99 Carbon Dioxide 26.3 23.7 BUN 57 H 59 H Creatinine 2.0 H 2.1 H Glucose 301 H 314 H Calcium 9.9 9.2 Cardiac Enzymes 05/19/25 05/19/25 05/19/25 Range/Units 01:35 05:25 10:35 Troponin I 0.057 H* 0.045 0.041 (0.0-0.045) ng/mL Liver Function 05/19/25 05/19/25 Range/Units 01:35 05:25 Total Bilirubin 0.9 0.9 (0.3-1.2) mg/dL AST 31 23 (0-34) U/L ALT 38 32 (10-49) U/L Alkaline Phosphatase 110 97 (46-116) U/L Albumin 4.1 3.8 (3.4-4.8) gm/dL Quality Measures Quality Measures none Advance care planning discussed with:: patient Medications Home Medications and Allergies Home Medications ?Medication ?Instructions ?Recorded ?Confirmed ?Type simvastatin 20 mg tablet (Zocor) 20 mg PO HS CHOLESTER OL #0 tabs 06/30/14 05/19/25 History valsartan 80 mg tablet (Diovan) 80 mg PO QDAY HBP #0 t abs 06/30/14 05/19/25 History Held on 05/21/25. Instructions: Resume on 06/07/25. Please hold until you see Dr. Bowie aspirin 81 mg chewable tablet 81 mg PO QDAY HEART ##0 09/05/14 05/19/25 History clopidogrel 75 mg tablet (Plavix) 75 mg PO QDAY 05/19/25 History metformin 500 mg tablet 500 mg PO QDAY 02/15/2511/12 History Held on 05/21/25. Instructions: Resume on 06/09/25. please hold until you see your primary care regarding metformin since you have cute kidney injury. Please repeat renal panel in 1-2 weeks bumetanide 2 mg tablet 2 mg PO QDAY 05/15/25 History spironolactone 25 mg tablet 25 mg PO QDAY 05/15/2511/12 History Held on 05/21/25. Instructions: Resume on 06/07/25. Please hold until you see Dr. Bowie carvedilol 3.125 mg tablet 3.125 mg PO Q8H 05/19/25 History Allergies Allergy/AdvReac Type Severity Reaction Status Date / Time NKA* Allergy Uncoded 05/17/25 16:29 Visit Medications Acetaminophen (Acetaminophen 325 Mg Tablet) 650 mg PO Q6H PRN PRN Reason: Fever >100.4 Stop: 06/18/25 04:28 Acetaminophen (Acetaminophen 325 Mg Tablet) 650 mg PO Q6H PRN PRN Reason: PAIN SCALE 1-3 (mild Stop: 06/18/25 04:28 Hydrocodone Bitart/Acetaminophen (Hydrocodone/Apap 5/325 Tablet) 1 tab PO Q4HR PRN PRN Reason: PAIN SCALE 4-6 (Moderate Stop: 05/24/25 04:28 Dextrose (Dextrose 50%-Water Inj 50 Ml Syringe) 25 ml IV Q15MIN PRN PRN Reason: BG 50-70 responsive npo pt Stop: 06/18/25 04:28 Dextrose (Dextrose 50%-Water Inj 50 Ml Syringe) 50 ml IV Q15MIN PRN PRN Reason: BG <50 OR BG <70 & pt unresponsive Stop: 06/18/25 04:28 Glucagon (Glucagon Inj 1 Mg Vial) 1 mg IM Q15MIN PRN PRN Reason: BG <70, and no IV access Heparin Sodium (Porcine) (Heparin Sod Inj 5000 Unit/Ml Vial) 5,000 unit SC Q8HR [facility] Stop: 06/02/25 05:59 Last Admin: 05/19/25 21:11 Dose: 5,000 unit Insulin Human Lispro (Insulin Lispro (Admelog) 1 Unit/0.01 Ml Unit) [address] [facility]; Protocol Stop: 06/18/25 07:29 Last Admin: 05/19/25 16:54 Dose: 2 unit Ondansetron HCl (Ondansetron Inj 2 Mg/Ml Inj 2 Ml) 4 mg IVP Q8H PRN; Protocol PRN Reason: NAUSEA OR VOMITING Stop: 06/18/25 04:28 Discontinued Medications Bumetanide (Bumetanide Inj 0.25 Mg/Ml Vial 4 Ml) 2 mg IVP QDAY [facility] Stop: 06/19/25 08:59 Bumetanide (Bumetanide Inj 0.25 Mg/Ml Vial 4 Ml) 2 mg IVP QDAY [facility] Stop: 06/18/25 14:31 Bumetanide (Bumetanide Inj 0.25 Mg/Ml Vial 4 Ml) 2 mg IVP X1 ONE Stop: 05/19/25 14:40 Bumetanide (Bumetanide Inj 0.25 Mg/Ml Vial 4 Ml) 2 mg IVP X1 STA Stop: 05/19/25 14:40 Last Admin: 05/19/25 16:19 Dose: 2 mg Insulin Human Lispro (Insulin Lispro (Admelog) 1 Unit/0.01 Ml Unit) 0 unit SC [facility]; Protocol Stop: 06/18/25 07:29 Last Admin: 05/19/25 07:49 Dose: 3 unit Ondansetron HCl (Ondansetron Inj 2 Mg/Ml Inj 2 Ml) 4 mg IVP X1 ONE; Protocol Stop: 05/19/25 03:37 Last Admin: 05/19/25 03:39 Dose: Not Given Assessment & Plan Plan Mrs. Diaz is an 89 year old female with a history of CAD status post stents 01/19/2025, aortic stenosis with valve replacement, HFpEF EF 55%, severe aortic regurgitation with ascending aortic dilation 4.5 cm, CHF, T2DM, and HTN who presented with worsening shortness of breath. Patient was admitted for severe aortic regurgitation. #Severe aortic regurgitation #Prosthetic valve dysfunction #Hx of aortic valve stenosis s/p valve replacement #HFpEF EF 55% #Ascending aorta dilation #Cardiorenal syndrome #NSTEMI type II BNP elevated at 3280. CXR notable for moderate vascular congestion. On Physical exam, lungs are clear to auscultation b/l, absent pedal edema, no JVD noted. EKG did not show ST segment abnormalities Troponins peaked 0.057 Elevated creatinine 2.1 (baseline 1.3) and BUN 59 (baseline 33) in the setting of normal and stable BP indicate cardiorenal syndrome where kidney injury has occurred most probably 2/2 renal vein congestion. Coronary angiogram performed by Dr Bowie, patient?s identity access management architect on [id number] concluded in the following summary of findings. 1. Severe aortic valve regurgitation, prosthetic valve dysfunction with mild stenosis. 2. Elevated pulmonary artery wedge pressure and pulmonary artery pressures due to group II pulmonary hypertension secondary to heart failure. 3. Nonobstructive coronary arteries. 4. 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 ANTHONY ([id number]) estimated EF at 55-60%. +Severe prosthetic regurgitation of the aortic valve prosthesis. Central AI . Mostly degenerative etiology. Ascending aortic dilataion noted - moderate at 4.5 cm. Moderate MR. Normal LV size and wall thickness. Estimated EF at 55-60%. Normal RV size and function. Moderate MR. MV PISA regurgitant volume is 43.8 cm?. Moderata to severe TR. Dr Bowie attributes these findings to a degenerating aortic valve prosthesis, which is 17y old. Pt was scheduled to complete TAVR procedure by Dr. Wade. Plan: -Recommend resuming at-home diuresis by bumetanide IV 2mg x1; Cardiology will order subsequent doses if indicated. ? Keep potassium and magnesium above 4 and 2 respectively ? Daily weights, fluid restriction, strict TK's ? pending lipid panel. #Type 2 diabetes mellitus #Hyperglycemia HgbA1c 8.1. Blood glc in 300?s. ? Sliding scale insulin ? Continue to monitor blood glucose #hypothyroidism Patient had TSH of 7.59 in on 05/19. ? Free T4 labs ordered #Hypertension -Hold anti-hypertensive meds in the setting of soft-normal BP Health Maintanance: DVT Prophylaxis: Heparin Diet: Cardiac diet with renal, fluid restriction 1800cc, and consistent low carb modifications Code Status: FULL This case was discussed with my attending physician, Dr. Wade. Liza Raya, DO PGY I
[2025-05-20] VITALS (9 sets, daily range): BP systolic 116–136; BP diastolic 45–69; PULSE 46–88; RESP 12–96; TEMP 36–36.4; O2SAT 96–99; BMI 22.3
[2025-05-20] MEDS: HEPARIN SOD INJ 5000 UNIT/ML VIAL SC ×3 (05:12→21:01)
[2025-05-20 05:58] LABS: Basophils # (Auto) 0.0 Thou/mm3 (0.0-0.2); Basophils % (Auto) 0 % (0-2.5); Eosinophils # (Auto) 0.0 Thou/mm3 (0.0-0.5); Eosinophils % (Auto) 0 % (0-10); Hematocrit 31.3 % (36.0-46.0); Hemoglobin 10.4 g/dL (12.0-16.0); Immature Granulocytes Auto 0.13 Thou/mm3 (0.00-0.00); Lymphocytes # (Auto) 1.3 Thou/mm3 (1.0-4.8); Lymphocytes % (Auto) 18 % (10-50); Mean Corpuscular HGB Conc 33.2 g/dl (31.0-37.0); Mean Corpuscular Hemoglobin 29.1 pg (25.0-35.0); Mean Corpuscular Volume 87 fL (80-100); Monocytes # (Auto) 2.0 Thou/mm3 (0.0-0.8); Monocytes % (Auto) 27 % (0-12); Neutrophils # (Auto) 3.7 Thou/mm3 (1.8-7.7); Neutrophils % (Auto) 52 % (37-80); Nucleated Red Blood Cell # 0.00 Thou/mm3 (0.00-0.00); Nucleated Red Blood Cell % 0 /100 WBC (0); Platelet Count 126 Thou/mm3 (140-440); RDW Standard Deviation 46.3 fL (36.4-46.3); Red Blood Count 3.58 Miln/mm3 (4.00-5.20); White Blood Count 7.1 Thou/mm3 (3.6-11.0)
[2025-05-20 06:19] LABS: INR 1.1 (0.9-1.3); Partial Thromboplastin Time 24.8 Seconds (22.0-36.0); Prothrombin Time 11.8 Seconds (9.0-12.2)
[2025-05-20 06:32] LABS: Alanine Aminotransferase 24 U/L (10-49); Albumin, Serum 3.6 gm/dL (3.4-4.8); Albumin/Globulin Ratio 1.6 (1.2-2.2); Alkaline Phosphatase 81 U/L (46-116); Anion Gap 15 (7-16); Aspartate Amino Transferase 21 U/L (0-34); BUN/Creatinine Ratio 32 Ratio (12-20); Bilirubin,Total 0.8 mg/dL (0.3-1.2); Blood Urea Nitrogen 67 mg/dL (9-23); Calcium 9.0 mg/dL (8.3-10.6); Calcium (Corrected) 9.3 mg/dL (8.5-10.1); Carbon Dioxide 23.9 mMol/L (20.0-31.0); Chloride 99 mMol/L (98-107); Creatinine (Component) 2.1 mg/dL (0.6-1.3); Estimated Creatinine Clearance 14.6 mL/min (>60); Free T4 (Free Thyroxine) 1.38 ng/dL (0.89-1.76); Globulin 2.3 gm/dL (2.3-3.5); Glucose 116 mg/dL (74-106); Magnesium 2.0 mg/dL (1.6-2.6); Osmolality,Calculated 296 (275-295); Phosphorous 4.7 mg/dL (2.4-5.1); Potassium 4.4 mMol/L (3.4-5.1); Sodium 138 mMol/L (136-145); Total Protein 5.9 gm/dL (5.7-8.2); eGFR 22 See Note
[2025-05-20] MEDS: INSULIN LISPRO (AdmeLOG) 1 UNIT/0.01 ML UNIT SC ×2 (11:49→17:29)
[2025-05-20] MEDS: BUMETANIDE INJ 0.25 MG/ML VIAL 4 ML 2 MG IVP (12:51)
--- NOTE | 2025-05-20 13:29 | ESPR_ITS ---
Documentation for date of: 05/20/25 Subjective Subjective Interval history: Patient seen and examined at bedside. Shortness of breath is improving, was given Bumex 2 mg IV x 1 yesterday by cardiology. Will give additional dose today Bumex 2 mg IV x 1. VeXUS, ultrasound assessment showed patient has mild congestion yesterday. Resumed home dose Bumex from tomorrow per cardiology recommendations. Patient will likely be discharged in a.m. and f/u with nephro o/p Exam Vital Signs Temp Pulse Resp BP Pulse Ox O2 Del Method 96.9 F 77 15 132/63 H 96 Room Air 05/20/25 12:00 05/20/25 12:51 05/20/25 12:00 05/20/25 12:51 05/20/25 12:00 05/20/25 12:00 Narrative Exam Physical Exam: General: Alert, no acute distress. Skin: Warm, dry, intact, no obvious rash. Head: Normocephalic, atraumatic. Eye: Normal conjunctiva, PERRL. Cardiovascular: Regular rate rhythm, no murmur, +S1/S2. Positive murmur in aortic area Respiratory: Lungs are clear to auscultation, respirations unlabored, no crackles, no wheezing. Gastrointestinal: Soft, nontender, non-distended. No guarding or rebound tenderness. Extremities: No edema, no cyanosis, no clubbing. 2+ radial pulse bilaterally, 2+ pedal pulse bilaterally. Neuro: No focal deficits observed. Conversant, moving all extremities. No overt cerebellar signs/incoordination. Psychiatric: Cooperative, appropriate affect. Objective Labs 05/20/25 04:55 05/20/25 04:55 Labs: Laboratory Results - last 24 hr 05/20/25 04:55 WBC 7.1 RBC 3.58 L Hgb 10.4 L Hct 31.3 L MCV 87 MCH 29.1 MCHC 33.2 RDW Std Deviation 46.3 Plt Count 126 L Neut % (Auto) 52 Lymph % (Auto) 18 [place] % (Auto) 27 H Eos % (Auto) 0 Baso % (Auto) 0 Neut # (Auto) 3.7 Lymph # (Auto) 1.3 [place] # (Auto) 2.0 H Eos # (Auto) 0.0 Baso # (Auto) 0.0 Immature Gran # (Auto) 0.13 H Absolute Nucleated RBC 0.00 Immature Gran % 2 H Nucleated RBC % 0 PT 11.8 INR 1.1 APTT 24.8 Sodium 138 Potassium 4.4 D Chloride 99 Carbon Dioxide 23.9 Anion Gap 15 BUN 67 H Creatinine 2.1 H Estim Creat Clear Calc 14.6 L eGFR 22 L BUN/Creatinine Ratio 32 H Glucose 116 H D Calculated Osmolality 296 H Calcium 9.0 Corrected Calcium 9.3 Phosphorus 4.7 Magnesium 2.0 Total Bilirubin 0.8 AST 21 ALT 24 Alkaline Phosphatase 81 Total Protein 5.9 Albumin 3.6 Globulin 2.3 Albumin/Globulin Ratio 1.6 Free T4 1.38 Quality Measures Quality Measures none Advance care planning discussed with:: patient Assessment & Plan Assessment Current Active Medications: Generic Name Dose Route Start Last Admin Trade Name Freq PRN Reason Stop Dose Admin Acetaminophen 650 mg 05/19/25 04:29 Acetaminophen 325 Mg Tablet PO 06/18/25 04:28 Q6H PRN Fever >100.4 Acetaminophen 650 mg 05/19/25 04:29 Acetaminophen 325 Mg Tablet PO 06/18/25 04:28 Q6H PRN PAIN SCALE 1-3 (mild Hydrocodone Bitart/Acetaminophen 1 tab 05/19/25 04:29 Hydrocodone/Apap 5/325 Tablet PO 05/24/25 04:28 Q4HR PRN PAIN SCALE 4-6 (Moderate Dextrose 25 ml 05/19/25 04:29 Dextrose 50%-Water Inj 50 Ml Syringe IV 06/18/25 04:28 Q15MIN PRN BG 50-70 responsive npo pt Dextrose 50 ml 05/19/25 04:29 Dextrose 50%-Water Inj 50 Ml Syringe IV 06/18/25 04:28 Q15MIN PRN BG <50 OR BG <70 & pt unresponsive Glucagon 1 mg 05/19/25 04:29 Glucagon Inj 1 Mg Vial IM Q15MIN PRN BG <70, and no IV access Heparin Sodium (Porcine) 5,000 unit 05/19/25 06:00 05/20/25 05:12 Heparin Sod Inj 5000 Unit/Ml Vial SC 06/02/25 05:59 5,000 unit Q8HR VELMA Administration Insulin Human Lispro 0 unit 05/19/25 08:18 05/20/25 11:49 Insulin Lispro (Admelog) 1 Unit/0.01 Ml Unit SC 06/18/25 07:29 2 unit AC VELMA Administration Protocol Ondansetron HCl 4 mg 05/19/25 04:29 Ondansetron Inj 2 Mg/Ml Inj 2 Ml IVP 06/18/25 04:28 Q8H PRN NAUSEA OR VOMITING Protocol Plan Mrs. Diaz is an 89 year old female with a history of CAD status post stents 01/19/2025, aortic stenosis with valve replacement, HFpEF EF 55%, severe aortic regurgitation with ascending aortic dilation 4.5 cm, CHF, T2DM, and HTN who presented with worsening shortness of breath. Patient was admitted for severe aortic regurgitation. 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 Bowie showed evidence of severe aortic regurgitation, which is new compared to her previous study. The echocardiogram also showed severe pulmonary hypertension and severe tricuspid regurgitation due to left heart failure. Left ventricle ejection fraction estimated to be 55 to 60%. Her professional builder believes that this is due to a malfunctioning aortic prosthetic valve, which is 17 years old. Her professional builder plan to consult Dr. Wade for TAVR procedure. Given the patient's past history of CHF and initial BNP of 2280 in ED, there was some suspicion for possible fluid overload. However the patient does not look fluid overloaded on exam and ultrasound, suggesting that this is symptomatic due to severe aortic regurgitation secondary to her prosthetic valve dysfunction. ? Bumex 1mg IVP x2 given, resume home dose Bumex ? Patient had initial troponin of 0.057 in the ED, subsequent troponins negative ? Keep potassium and magnesium above 4 and 2 respectively ? Daily weights, fluid restriction, strict TK's ? Lipid panel ordered ? 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 This is most likely due to decreased blood flow from her severe aortic regurgitation. Will not perform IV fluid resuscitation at this time due to concern of possibly causing fluid overload. ? Will hold patient's home bumetanide 2 mg daily ? Avoid nephrotoxic agents, renally dose medications, will continue to monitor ? Consulted nephrology, appreciate recommendations #Type 2 diabetes mellitus #Hyperglycemia Patient had initial glucose of 301 in the ED, followed by an a.m. reading of 314. Hemoglobin A1c ordered on admission resulted as 8.1. Patient has a history of type 2 diabetes mellitus, but does not take insulin at home. ? Started patient on sliding scale insulin ? Change diet to cardiac diet with consistent low-carb ? Will continue to monitor blood glucose to see if further insulin management is needed #Suspected hypothyroidism Patient had TSH of 7.59 in on 05/19, free T4 1.38. #Hypertension Patient has reported history of hypertension. DVT Prophylaxis: Heparin GI Prophylaxis: N/A Bowel: N/A Diet: Cardiac diet with renal, fluid restriction 1800cc, and consistent low carb modifications Smith: N/A Lines: Peripheral IV Antibiotics: N/A Code Status: FULL Reason for Hospitalization: Severe aortic insufficiency Other Barriers to Discharge: Cardiology recommendations Patient plan of care was discussed with attending physician Dr. Dalila aZmora, PGY1 Attending Provider Attestation/Addendum I attest that I was physically present for the evaluation, physical examination, lab and imaging review of the patient with the residents. I discussed the case with the residents and agree with the findings and plans of care as documented above. At bedside today, patient states he continues to feel better but her symptoms has not resolved. Received additional Bumex 2 mg IV x 1 as recommended by cardiology. Bedside VeXUS ultrasound yesterday showed mild congestion. Discussed with cardiology, patient has received PCI and proximal LAD about couple months ago. But was having progressive shortness of breath outpatient due to severe aortic valve regurgitation due to prosthetic valve dysfunction. Patient has been being worked up for TAVR procedure, will likely go for procedure in next 3 weeks. Recommended to continue diuretics therapy until patient undergoes TAVR procedure, With close monitoring of kidney function, appreciate recommendations. Nephrology following closely, recommended renal ultrasound along with urine electrolytes, orders in place, appreciate recommendations. If patient continues to have stable vital and kidney function tomorrow we will plan for discharge. Beatriz Conner MD
--- NOTE | 2025-05-20 13:53 | PD.RESCONSUL ---
HPI Data of Consult Consult date: 05/20/25 Requesting Physician: Beatriz Conner MD Admitting Provider: Biju Luther MD Attending Provider: Beatriz Conner MD Primary Care Provider: Marc Fuentes MD Consult Narrative Reason for consult: CORINNE History of present illness: Ms. Diaz is a 89-year-old female with past medical history of CAD s/p stents, aortic stenosis s/p valve replacement, HFpEF (EF 55%), and severe aortic regurgitation with ascending aortic dilation of 4.5 cm was admitted to hospital on 05/19/2025 with chief complaints of increased shortness of breath. Shortness of breath has been going on for few days and currently has gotten worse that she presented herself to the ED. In the emergency department she was noted to be in congestive cardiac failure-cardiology was consulted. Bumex was initiated. Nephrology consultation was requested in view of CORINNE. patient denies having any chest pain, productive sputum, cough, decreased urination, burning sensation urination, blood in the stools, blood in the urine, or fevers. Of note patient recently had a right heart cath for evaluation for possible aortic valve replacement via TAVR on 05/05/2025. At this time patient was found to have severe aortic valve regurgitation and ascending aorta dilation of 4.5 cm and nonobstructive coronary arteries. Patient was seen outpatient cardiology for possible TAVR procedure given that she was not a candidate for surgery given her age and multiple comorbidities. Patient had a recent ANTHONY around 2 days ago and she was scheduled for follow-up for her environmental inspector on the sixth of this month. In the emergency department patient's blood pressure was stable. Labs reviewed. Home medications: Aspirin, Bumex, carvedilol, Plavix, spironolactone cc:: cc: Beatriz Conner MD Review of Systems Review of Systems Narrative Review of Systems: CONSTITUTIONAL: Patient denies any fever, chills. HEENT: Denies any visual disturbances or hearing problems. CARDIOVASCULAR: Patient denies any chest pain. c/o shortness of breath, swelling in the lower extremities. PULMONARY: Patient c/o shortness of breath . GASTROINTESTINAL: Patient denies any abdominal pain, constipation, nausea, vomiting, diarrhea. GENITOURINARY: Patient denies any urinary symptoms of burning or frequency or hematuria, denies any form in the urine. SKIN: Denies any rash. MUSCULOSKELETAL: Denies any muscular skeletal problems of joint pains. NEUROLOGICAL: Denies any neurological problems of strokes, seizures or confusion. Denies any memory problems. PSYCHIATRIC: Denies any depression or anxiety. LYMPHATICS : No lymphadenopathy Past Medical History Past Medical History NEUROLOGIC: Negative Neurological Disorders CARDIAC: Positive Cardiac Disorders, Atherosclerotic Heart Disease, Hypercholesterolemia, Congestive Heart Failure, Valvular Heart Disease and Hypertension RESPIRATORY: Negative Respiratory Disorders, Chronic Obstructive Pulmonary Disease (COPD), Smoking or Smoking Exposure GASTROINTESTINAL: Positive Gastrointestinal Disorders and Obstructive Bowel GENITOURINARY: Negative Genitourinary Disorders or Renal Disease REPRODUCTIVE: Negative Pelvic Inflammatory Disease MUSCULOSKELETAL: Positive Osteoporosis; Negative Musculoskeletal Disorders ENT: Positive Cataracts (anam.) ENDOCRINE: Positive Endocrine Disorders and Diabetes Mellitus Type 2; Negative Diabetes Mellitus Type 1 HEMATOLOGIC: Negative Blood Disorders OTHER HISTORY: Positive Hospitalization, Chicken Pox and Measles; Negative Blood Transfusions, Anesthesia Reactions or Cancer Surgical History SURGICAL: Positive Cardiac Surgery, Valve Replacement, Cardiac Catheterization, Angiogram, Abdominal Surgery, Bowel Surgery and Hysterectomy; Negative Endocrine Surgery or Joint Replacement Social History SMOKING STATUS: Former smoker Exam Vital Signs Temp Pulse Resp BP Pulse Ox O2 Del Method 96.9 F 77 15 132/63 H 96 Room Air 05/20/25 12:00 05/20/25 12:51 05/20/25 12:00 05/20/25 12:51 05/20/25 12:00 05/20/25 12:00 Narrative Exam GENERAL APPEARANCE: Patient seems to be comfortable, adequately hydrated and nourished. HEENT: EOMI, PERRLA NECK: Neck supple, no JVD or bruit CARDIOVASCULAR: Heart regular, 3/6 murmurs - two LUNGS/CHEST: Basal crackles worse on the right side ABDOMEN: Soft, nontender, nondistended. No masses. Normal bowel sounds. EXTREMITIES: 1+ edema in the lower extremities SKIN: Skin exam normal without any rashes MUSCULOSKELETAL: Musculoskeletal exam normal PSYCHIATRIC: Normal mood, affect LYMPHATICS: No lymphadenopathy noted NEUROLOGICAL : No neurological deficits Results Labs 05/21/25 05:22 05/21/25 05:22 Labs: Short CBC 05/20/25 Range/Units 04:55 WBC 7.1 (3.6-11.0) Thou/mm3 Hgb 10.4 L (12.0-16.0) g/dL Hct 31.3 L (36.0-46.0) % Plt Count 126 L (140-440) Thou/mm3 BMP 05/20/25 04:55 Sodium 138 Potassium 4.4 D Chloride 99 Carbon Dioxide 23.9 BUN 67 H Creatinine 2.1 H Glucose 116 H D Calcium 9.0 Liver Function 05/20/25 Range/Units 04:55 Total Bilirubin 0.8 (0.3-1.2) mg/dL AST 21 (0-34) U/L ALT 24 (10-49) U/L Alkaline Phosphatase 81 (46-116) U/L Albumin 3.6 (3.4-4.8) gm/dL Quality Measures Quality Measures none Advance care planning discussed with:: patient Medications Home Medications and Allergies Home Medications ?Medication ?Instructions ?Recorded ?Confirmed ?Type simvastatin 20 mg tablet (Zocor) 20 mg PO HS CHOLESTEROL #0 tabs 06/30/14 05/19/25 History valsartan 80 mg tablet (Diovan) 80 mg PO QDAY HBP #0 tabs 06/30/14 05/19/25 History Held on 05/21/25. Instructions: Resume on 06/07/25. Please hold until you see Dr. Bowie aspirin 81 mg chewable tablet 81 mg PO QDAY HEART ##0 09/05/14 05/19/25 History clopidogrel 75 mg tablet (Plavix) 75 mg PO QDAY 02/15/25 05/19/25 History metformin 500 mg tablet 500 mg PO QDAY 02/15/25 05/19/25 History Held on 05/21/25. Instructions: Resume on 06/09/25. please hold until you see your primary care regarding metformin since you have cute kidney injury. Please repeat renal panel in 1-2 weeks bumetanide 2 mg tablet 2 mg PO QDAY 05/15/25 05/19/25 History spironolactone 25 mg tablet 25 mg PO QDAY 05/15/25 05/19/25 History Held on 05/21/25. Instructions: Resume on 06/07/25. Please hold until you see Dr. Bowie carvedilol 3.125 mg tablet 3.125 mg PO Q8H 05/19/25 05/19/25 History Allergies Allergy/AdvReac Type Severity Reaction Status Date / Time NKA* Allergy Uncoded 05/17/25 16:29 Visit Medications Acetaminophen (Acetaminophen 325 Mg Tablet) 650 mg PO Q6H PRN PRN Reason: Fever >100.4 Stop: 06/18/25 04:28 Acetaminophen (Acetaminophen 325 Mg Tablet) 650 mg PO Q6H PRN PRN Reason: PAIN SCALE 1-3 (mild Stop: 06/18/25 04:28 Hydrocodone Bitart/Acetaminophen (Hydrocodone/Apap 5/325 Tablet) 1 tab PO Q4HR PRN PRN Reason: PAIN SCALE 4-6 (Moderate Stop: 05/24/25 04:28 Dextrose (Dextrose 50%-Water Inj 50 Ml Syringe) 25 ml IV Q15MIN PRN PRN Reason: BG 50-70 responsive npo pt Stop: 06/18/25 04:28 Dextrose (Dextrose 50%-Water Inj 50 Ml Syringe) 50 ml IV Q15MIN PRN PRN Reason: BG <50 OR BG <70 & pt unresponsive Stop: 06/18/25 04:28 Glucagon (Glucagon Inj 1 Mg Vial) 1 mg IM Q15MIN PRN PRN Reason: BG <70, and no IV access Heparin Sodium (Porcine) (Heparin Sod Inj 5000 Unit/Ml Vial) 5,000 unit SC Q8HR VELMA Stop: 06/02/25 05:59 Last Admin: 05/20/25 13:51 Dose: 5,000 unit Insulin Human Lispro (Insulin Lispro (Admelog) 1 Unit/0.01 Ml Unit) 0 unit SC AC VELMA; Protocol Stop: 06/18/25 07:29 Last Admin: 05/20/25 11:49 Dose: 2 unit Ondansetron HCl (Ondansetron Inj 2 Mg/Ml Inj 2 Ml) 4 mg IVP Q8H PRN; Protocol PRN Reason: NAUSEA OR VOMITING Stop: 06/18/25 04:28 Discontinued Medications Bumetanide (Bumetanide Inj 0.25 Mg/Ml Vial 4 Ml) 2 mg IVP QDAY VELMA Stop: 06/19/25 08:59 Bumetanide (Bumetanide Inj 0.25 Mg/Ml Vial 4 Ml) 2 mg IVP QDAY VELMA Stop: 06/18/25 14:31 Bumetanide (Bumetanide Inj 0.25 Mg/Ml Vial 4 Ml) 2 mg IVP X1 ONE Stop: 05/19/25 14:40 Bumetanide (Bumetanide Inj 0.25 Mg/Ml Vial 4 Ml) 2 mg IVP X1 STA Stop: 05/19/25 14:40 Last Admin: 05/19/25 16:19 Dose: 2 mg Bumetanide (Bumetanide Inj 0.25 Mg/Ml Vial 4 Ml) 2 mg IVP X1 ONE Stop: 05/20/25 12:02 Last Admin: 05/20/25 12:51 Dose: 2 mg Insulin Human Lispro (Insulin Lispro (Admelog) 1 Unit/0.01 Ml Unit) 0 unit SC AC VELMA; Protocol Stop: 06/18/25 07:29 Last Admin: 05/19/25 07:49 Dose: 3 unit Ondansetron HCl (Ondansetron Inj 2 Mg/Ml Inj 2 Ml) 4 mg IVP X1 ONE; Protocol Stop: 05/19/25 03:37 Last Admin: 05/19/25 03:39 Dose: Not Given Assessment & Plan Problem List (1) Acute renal failure (ARF): Status: Acute Assessment and plan: Acute renal failure secondary to prerenal azotemia. 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 (2) CHF (congestive heart failure): Status: Acute Assessment and plan: CHF exacerbation. Agree with diuretics. (3) Valvular heart disease: Status: Acute Assessment and plan: Patient had valve replacement and needs a redo TAVR surgery. (4) Shortness of breath: Status: Acute (5) HTN (hypertension), benign: Status: Acute Assessment and plan: Blood pressure stable. (6) Hyperlipidemia: Status: Acute Assessment and plan: On statin (7) Diabetes: Status: Acute Assessment and plan: Accu-Chek, sliding scale. Hold metformin. Assessment Thank you Zackery for allowing me to participate in the care of Ms. Diaz
--- NOTE | 2025-05-20 22:21 | PD.RESPRO ---
Documentation for date of: 05/20/25 Subjective Subjective Interval history: Patient seen and examined at bedside. No acute events overnight. Shortness of breath is persistent, although not occuring at rest. She reports her exertional dyspnea to be worsening, happening with progressively less activity now. Currently, walking to and using the washroom adjacent to her hospital room is enough to make her SOB.?Patient sleeps on 4 pillows to raise her upper body while lying in bed at nights. Patient denies having any chest pain, palpitations, productive sputum, cough, or fevers. VeXUS ultrasound assessment showed patient had mild congestion yesterday. home Bumex 2mg resumed. Exam Vital Signs Temp Pulse Resp BP Pulse Ox O2 Del Method 96.9 F 63 12 116/57 L 97 Room Air 05/20/25 20:00 05/20/25 20:00 05/20/25 20:00 05/20/25 20:00 05/20/25 20:00 05/20/25 20:00 Narrative Exam Physical Exam: General: Alert, no acute distress. Skin: Warm, dry, intact, no obvious rash. Head: Normocephalic, atraumatic. Eye: Normal conjunctiva, PERRL. Cardiovascular: Regular rate rhythm, no murmur, +S1/S2. Positive diastolic murmur in aortic area. no JVD noted. Respiratory: crackles auscultated at Lt lower bed, trace ankle edema, respirations unlabored, no wheezing. Gastrointestinal: Soft, nontender, non-distended. No guarding or rebound tenderness. Extremities: No edema, no cyanosis, no clubbing. 2+ radial pulse bilaterally, 2+ pedal pulse bilaterally. Neuro: No focal deficits observed. Conversant, moving all extremities. No overt cerebellar signs/incoordination. Psychiatric: Cooperative, appropriate affect. Objective Labs 05/21/25 05:22 05/21/25 05:22 Labs: Laboratory Results - last 24 hr 05/20/25 04:55 WBC 7.1 RBC 3.58 L Hgb 10.4 L Hct 31.3 L MCV 87 MCH 29.1 MCHC 33.2 RDW Std Deviation 46.3 Plt Count 126 L Neut % (Auto) 52 Lymph % (Auto) 18 [place] % (Auto) 27 H Eos % (Auto) 0 Baso % (Auto) 0 Neut # (Auto) 3.7 Lymph # (Auto) 1.3 [place] # (Auto) 2.0 H Eos # (Auto) 0.0 Baso # (Auto) 0.0 Immature Gran # (Auto) 0.13 H Absolute Nucleated RBC 0.00 Immature Gran % 2 H Nucleated RBC % 0 PT 11.8 INR 1.1 APTT 24.8 Sodium 138 Potassium 4.4 D Chloride 99 Carbon Dioxide 23.9 Anion Gap 15 BUN 67 H Creatinine 2.1 H Estim Creat Clear Calc 14.6 L eGFR 22 L BUN/Creatinine Ratio 32 H Glucose 116 H D Calculated Osmolality 296 H Calcium 9.0 Corrected Calcium 9.3 Phosphorus 4.7 Magnesium 2.0 Total Bilirubin 0.8 AST 21 ALT 24 Alkaline Phosphatase 81 Total Protein 5.9 Albumin 3.6 Globulin 2.3 Albumin/Globulin Ratio 1.6 Free T4 1.38 Quality Measures Quality Measures none Advance care planning discussed with:: patient Assessment & Plan Assessment Current Active Medications: Generic Name Dose Route Start Last Admin Trade Name Freq PRN Reason Stop Dose Admin Acetaminophen 650 mg 05/19/25 04:29 Acetaminophen 325 Mg Tablet PO 06/18/25 04:28 Q6H PRN Fever >100.4 Acetaminophen 650 mg 05/19/25 04:29 Acetaminophen 325 Mg Tablet PO 06/18/25 04:28 Q6H PRN PAIN SCALE 1-3 (mild Hydrocodone Bitart/Acetaminophen 1 tab 05/19/25 04:29 Hydrocodone/Apap 5/325 Tablet PO 05/24/25 04:28 Q4HR PRN PAIN SCALE 4-6 (Moderate Bumetanide 2 mg 05/21/25 09:00 Bumetanide 0.5 Mg Tablet PO 06/20/25 08:59 QDAY VELMA Dextrose 25 ml 05/19/25 04:29 Dextrose 50%-Water Inj 50 Ml Syringe IV 06/18/25 04:28 Q15MIN PRN BG 50-70 responsive npo pt Dextrose 50 ml 05/19/25 04:29 Dextrose 50%-Water Inj 50 Ml Syringe IV 06/18/25 04:28 Q15MIN PRN BG <50 OR BG <70 & pt unresponsive Glucagon 1 mg 05/19/25 04:29 Glucagon Inj 1 Mg Vial IM Q15MIN PRN BG <70, and no IV access Heparin Sodium (Porcine) 5,000 unit 05/19/25 06:00 08/02/25 21:01 Heparin Sod Inj 5000 Unit/Ml Vial SC 06/02/25 05:59 5,000 unit Q8HR VELMA Administration Insulin Human Lispro 0 unit 05/19/25 08:18 05/20/25 17:29 Insulin Lispro (Admelog) 1 Unit/0.01 Ml Unit SC 06/18/25 07:29 3 unit AC VELMA Administration Protocol Ondansetron HCl 4 mg 05/19/25 04:29 Ondansetron Inj 2 Mg/Ml Inj 2 Ml IVP 06/18/25 04:28 Q8H PRN NAUSEA OR VOMITING Protocol Plan Mrs. Diaz is an 89 year old female with a history of CAD status post stents 01/19/2025, aortic stenosis with valve replacement, HFpEF EF 55%, severe aortic regurgitation with ascending aortic dilation 4.5 cm, CHF, T2DM, and HTN who presented with worsening shortness of breath. Patient was admitted for severe aortic regurgitation. #Severe aortic regurgitation #Prosthetic valve dysfunction #Hx of aortic valve stenosis s/p valve replacement #HFpEF EF 55% #Ascending aorta dilation #Cardiorenal syndrome #NSTEMI type II BNP elevated at 3280 at presentation. CXR notable for moderate vascular congestion. On physical exam, crackles auscultated at Lt lower bed, trace ankle edema, no JVD noted. EKG did not show ST segment abnormalities Troponins peaked 0.057 Elevated creatinine 2.1 (baseline 1.3) and BUN 59 (baseline 33) in the setting of normal and stable BP indicate cardiorenal syndrome where kidney injury has occurred most probably 2/2 renal vein congestion. ? Coronary angiogram performed by Dr Bowie, patient?s payroll and benefits manager on [id number] concluded in the following summary of findings. 1. Severe aortic valve regurgitation, prosthetic valve dysfunction with mild stenosis. 2. Elevated pulmonary artery wedge pressure and pulmonary artery pressures due to group II pulmonary hypertension secondary to heart failure. 3. Nonobstructive coronary arteries. 4. 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 ? ANTHONY ([id number]) estimated EF at 55-60%. +Severe prosthetic regurgitation of the aortic valve prosthesis. Central AI . Mostly degenerative etiology. Ascending aortic dilataion noted - moderate at 4.5 cm. Moderate MR. Normal LV size and wall thickness. Estimated EF at 55-60%. Normal RV size and function. Moderate MR. MV PISA regurgitant volume is 43.8 cm?. Moderata to severe TR. Dr Bowie attributes these findings to a degenerating aortic valve prosthesis, which is 17y old. ? TG 74, Ch 102, LDL 45, HDL 42 Plan: - Pt hs been scheduled to complete in-valve TAVR procedure by Dr. Wade. - Spoke to Shira Samuels at [facility] and made arrangements for CT TAVR and CT surgery pre-procedure TAVR - Pt will resume Bumex 2mg daily, Plavix, and Statin therapy per payroll and benefits manager Dr Bowie's recommendation for proper diuresis. ? Consider resuming home BB if BP allow ? Keep potassium and magnesium above 4 and 2 respectively ? Daily weights, fluid restriction, strict TK's #Type 2 diabetes mellitus #Hyperglycemia HgbA1c 8.1. ? Sliding scale insulin ? Continue to monitor blood glucose #hypothyroidism Patient had TSH of 7.59 in on 05/19. Free T4 1.38. #Hypertension - Management according to payroll and benefits manager Dr. Antonio's recommendations. This case was discussed with my attending physician, Dr. Sheri Raya, DO PGY I Attending Provider Attestation/Addendum I have personally seen and examined the patient separately on the above date of service and discussed the plan of care with the resident. I reviewed the resident Dr. De Jesus consultation progress note and agree with the resident findings and plan in the note above and have also edited the documentation to reflect my findings and plan. 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 Patient is a long-term patient of Dr. Bowie who has been following her for more than 20 to 25 years. She did have an bioprosthetic aortic valve replacement for severe aortic stenosis in 2006 with the at [facility] #Biocor 21 mm which has been functioning well until recently. Patient has been having shortness of breath on exertion for the past few months. Patient did have a coronary angiogram which showed severe LAD stenosis and PCI performed on 01/19/2025 but in spite of that patient continued to have worsening shortness of breath on exertion and had admission to the emergency department requiring IV Lasix after which patient had a repeat echocardiogram in his office which showed patient had severe AI along with mild aortic stenosis and left normal EF. Patient was thought to have degenerative etiology for her high aortic regurgitation of the bioprosthetic arctic valve. Left and right heart cardiac testing was performed on 05/15/2025 which showed patent stents in the LAD from 2006 as well as 2024 and showed severe AI also on the cardiac catheterization. LVEDP was elevated at 36 and RHC showed elevated pressures PCWP was 22, mean PA was 39 mmHg and mean RA was 10 mmHg low cardiac output and low cardiac index was noted.. Dr. Bowie discussed with me for possible TAVR given the severity and ANTHONY was performed by me on 05/17/2025 Normal LV size and wall thickness. Estimated EF at 55-60%. 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 Central AI . There is no evidence of prolapse or flail leaflets. No eveidence of any abcess. Mostly degenerative etiology. Ascending aortic dilataion noted - moderate at 4.5 cm Moderate MR. MV PISA regurgitant volume is 43.8 cm?. MV PISA effective regurgitant orifice (ERO) is 0.27 cm?. Normal RV size and function. Modertae to severe TR. RSVP 60-70 mmhg Bubble study negative for PFO/ASD and no LA/ NICOLA thrombus. Patient apparently was with her family yesterday and started having worsening shortness of breath and could not sleep at night and hard to sit up height 6 feet and orthopnea and tried to use pillows for sleeping in the car shortness of breath is worsened but she could not even walk a few steps to the washroom and hence came to the emergency department for further evaluation. 1. Acute congestive heart failure in the setting of severe AI mostly secondary to degenerative bioprosthetic aortic valve. 2. 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 Acute kidney injury mostly secondary to cardiorenal syndrome in the setting of CHF 4. Mildly elevated troponins-secondary to NSTEMI type II from supply/demand mismatch and CHF exacerbation 5. CAD s/p PCI to LAD in 2006 and January 2025-patent stents in Couple of days ago 6. Severe aortic stenosis status post bioprosthetic Biocor 21 mm valve placed in 2006 7. Moderately dilated ascending aorta at 4.5 cm 8. 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 Mild to moderate PAH 10. Type 2 diabetes mellitus 1. Essential hypertension 12. Hyperlipidemia Patient presented with acute shortness of breath and mostly secondary to severe AI as patient also has orthopnea on presentation. Patient did have recent left and right heart cardiac cath 3 days before this admission which showed elevated right heart pressures with LVEDP of 36 mmHg and PCWP of 22 mmHg and mean PAH was 39 mmHg and mean RA of 10 mmHg. Patient is in acute congestive heart failure secondary to severe AI. Patient was on Bumex 2 mg once daily along with spironolactone but in spite of that patient appears to be fluid overloaded and hence we will started Bumex 2 mg IV for now. Kidney function is elevated with a creatinine of 2.0 and her baseline creatinine is around 1.2 recently indicating cardiorenal syndrome and recommend aggressive diuresis for now Bumex 2 mg IV twice daily. Continue to monitor renal functions closely. Strict input output, daily weights and 2 g sodium diet. BUN and creatinine slightly worsened to 16 and 2.1 but patient is feeling better and recommend to continue aggressive IV diuresis for 1 more day. Presentation is consistent with heart failure secondary to severe AI which also is causing the moderate MR and elevated pulmonary artery pressures with worsening TR from the same. Patient will need aggressive diuresis for now and will need valve replacement. She is not a surgical candidate and will be an ideal candidate for valve in valve TAVR in addition to fracturing the old valve. Discussed in detail with the family as well as the granddaughter who is at bedside and is a nurse. Explained the risk benefits and alternatives of performing a TAVR valve in valve procedure for the patient and risks of bleeding, heart attack, stroke, pacemaker, pericardial effusion, heart attack and in detail. Explained that she is a very high risk for complications given her multiple comorbidities age and the complex procedures. Patient and family including the granddaughter are in agreement and will start the process. Called the TAVR sales team member Shira Samuels at [facility]. Patient will need a CT TAVR as well as a cardiothoracic surgery appointment as part of the workup which has been arranged for next week after she gets discharged from here after appropriate treatment of the CHF. Once the workup is completed including the above appointments then we will discuss the patient in the structural heart team conference regarding eligibility and final planning for the valve in valve TAVR. Mildly elevated troponins mostly secondary to type II NSTEMI in the setting of acute CHF exacerbation. Patient did have a cardiac As noted above couple of days ago and showed patent stents in the LAD and rest of arteries only showed mild disease. Recommend no further ischemic workup. Continue aspirin Plavix high intensity statin for now. Management of rest of the medical conditions as per primary team and other consultants. Thank you for the consult and allowing me to participate in the care of the patient. Cardiology will continue to follow. Cyril Wade M.D. Interventional Cardiology
[2025-05-21] VITALS: BP 122/48; PULSE 58; PULSE 59; RESP 20; TEMP 36.1; O2SAT 96
[2025-05-21 04:00] VITALS: BP 132/70; PULSE 54; PULSE 64; RESP 13; TEMP 36.1; O2SAT 97
[2025-05-21 05:00] VITALS: RESP 94
[2025-05-21] MEDS: HEPARIN SOD INJ 5000 UNIT/ML VIAL SC (05:15)
[2025-05-21 05:52] LABS: Basophils # (Auto) 0.0 Thou/mm3 (0.0-0.2); Basophils % (Auto) 0 % (0-2.5); Eosinophils # (Auto) 0.0 Thou/mm3 (0.0-0.5); Eosinophils % (Auto) 0 % (0-10); Hematocrit 32.0 % (36.0-46.0); Hemoglobin 10.5 g/dL (12.0-16.0); Immature Granulocytes Auto 0.15 Thou/mm3 (0.00-0.00); Lymphocytes # (Auto) 1.3 Thou/mm3 (1.0-4.8); Lymphocytes % (Auto) 17 % (10-50); Mean Corpuscular HGB Conc 32.8 g/dl (31.0-37.0); Mean Corpuscular Hemoglobin 28.8 pg (25.0-35.0); Mean Corpuscular Volume 88 fL (80-100); Monocytes # (Auto) 2.4 Thou/mm3 (0.0-0.8); Monocytes % (Auto) 32 % (0-12); Neutrophils # (Auto) 3.6 Thou/mm3 (1.8-7.7); Neutrophils % (Auto) 49 % (37-80); Nucleated Red Blood Cell # 0.00 Thou/mm3 (0.00-0.00); Nucleated Red Blood Cell % 0 /100 WBC (0); Platelet Count 130 Thou/mm3 (140-440); RDW Standard Deviation 46.5 fL (36.4-46.3); Red Blood Count 3.64 Miln/mm3 (4.00-5.20); White Blood Count 7.4 Thou/mm3 (3.6-11.0)
[2025-05-21 06:32] LABS: Alanine Aminotransferase 20 U/L (10-49); Albumin, Serum 3.6 gm/dL (3.4-4.8); Albumin/Globulin Ratio 1.6 (1.2-2.2); Alkaline Phosphatase 80 U/L (46-116); Anion Gap 12 (7-16); Aspartate Amino Transferase 14 U/L (0-34); BUN/Creatinine Ratio 36 Ratio (12-20); Bilirubin,Total 0.8 mg/dL (0.3-1.2); Blood Urea Nitrogen 62 mg/dL (9-23); Calcium 9.0 mg/dL (8.3-10.6); Calcium (Corrected) 9.3 mg/dL (8.5-10.1); Carbon Dioxide 27.5 mMol/L (20.0-31.0); Chloride 100 mMol/L (98-107); Creatinine (Component) 1.7 mg/dL (0.6-1.3); Estimated Creatinine Clearance 18.1 mL/min (>60); Globulin 2.2 gm/dL (2.3-3.5); Glucose 132 mg/dL (74-106); Magnesium 2.1 mg/dL (1.6-2.6); Osmolality,Calculated 297 (275-295); Phosphorous 4.3 mg/dL (2.4-5.1); Potassium 3.5 mMol/L (3.4-5.1); Sodium 139 mMol/L (136-145); Total Protein 5.8 gm/dL (5.7-8.2); eGFR 29 See Note
[2025-05-21 08:00] VITALS: BP 135/63; PULSE 59; PULSE 93; RESP 16; TEMP 36.2; O2SAT 97
[2025-05-21 08:04] VITALS: BP 135/63; PULSE 75
[2025-05-21] MEDS: BUMETANIDE 0.5 MG TABLET 2 MG PO (08:04)
[2025-05-21] MEDS: ACETAMINOPHEN 325 MG TABLET 650 MG PO (08:09)
[2025-05-21 08:23] LABS: Eosinophils (Manual) 1 % (0-4); Lymphocytes (Manual) 29 % (20-44); Monocytes (Manual) 13 % (2-9); Neutrophils (Manual) 57 % (50-70)
--- NOTE | 2025-05-21 09:56 | ESPR_ITS ---
Documentation for date of: 05/21/25 Subjective Subjective Interval history: Ms. Diaz is a 89-year-old female with past medical history of CAD s/p stents, aortic stenosis s/p valve replacement, HFpEF (EF 55%), and severe aortic regurgitation with ascending aortic dilation of 4.5 cm was admitted to hospital on 05/19/2025 with chief complaints of increased shortness of breath. Shortness of breath has been going on for few days and currently has gotten worse that she presented herself to the ED. In the emergency department she was noted to be in congestive cardiac failure-cardiology was consulted. Bumex was initiated. Nephrology consultation was requested in view of CORINNE. patient denies having any chest pain, productive sputum, cough, decreased urination, burning sensation urination, blood in the stools, blood in the urine, or fevers. Of note patient recently had a right heart cath for evaluation for possible aortic valve replacement via TAVR on 05/05/2025. At this time patient was found to have severe aortic valve regurgitation and ascending aorta dilation of 4.5 cm and nonobstructive coronary arteries. Patient was seen outpatient cardiology for possible TAVR procedure given that she was not a candidate for surgery given her age and multiple comorbidities. 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 In the emergency department patient's blood pressure was stable. Labs reviewed. Home medications: Aspirin, Bumex, carvedilol, Plavix, spironolactone 05/21/2025 patient currently seen in medical floor. Resting comfortably. Shortness of breath slightly better. Blood sugar 259, blood pressure 120/80, heart rate 82. WBC 7.4, hemoglobin 10.5, platelets 130. Sodium 139, potassium 3.5, BUN 62, creatinine 1.7, blood sugar 132, calcium 9.3, phosphorus 4.3, LFTs normal Review of Systems Review of Systems Narrative Review of Systems: CONSTITUTIONAL: Patient denies any fever, chills. HEENT: Denies any visual disturbances or hearing problems. CARDIOVASCULAR: Patient denies any chest pain. c/o shortness of breath, swelling in the lower extremities. PULMONARY: Patient c/o shortness of breath . GASTROINTESTINAL: Patient denies any abdominal pain, constipation, nausea, vomiting, diarrhea. GENITOURINARY: Patient denies any urinary symptoms of burning or frequency or hematuria, denies any form in the urine. SKIN: Denies any rash. MUSCULOSKELETAL: Denies any muscular skeletal problems of joint pains. NEUROLOGICAL: Denies any neurological problems of strokes, seizures or confusion. Denies any memory problems. PSYCHIATRIC: Denies any depression or anxiety. LYMPHATICS : No lymphadenopathy Exam Vital Signs Temp Pulse Resp BP Pulse Ox O2 Del Method 36.2 C 82 16 120/80 97 Room Air 05/21/25 08:00 05/21/25 10:39 05/21/25 08:00 05/21/25 10:39 05/21/25 08:00 05/21/25 08:00 Narrative Exam GENERAL APPEARANCE: Patient seems to be comfortable, adequately hydrated and nourished. HEENT: EOMI, PERRLA NECK: Neck supple, no JVD or bruit CARDIOVASCULAR: Heart regular, 3/6 murmurs - two LUNGS/CHEST: Basal crackles worse on the right side ABDOMEN: Soft, nontender, nondistended. No masses. Normal bowel sounds. EXTREMITIES: 1+ edema in the lower extremities SKIN: Skin exam normal without any rashes MUSCULOSKELETAL: Musculoskeletal exam normal PSYCHIATRIC: Normal mood, affect LYMPHATICS: No lymphadenopathy noted NEUROLOGICAL : No neurological deficits Objective Labs 05/21/25 05:22 05/21/25 05:22 Labs: Laboratory Results - last 24 hr 05/21/25 05:22 WBC 7.4 RBC 3.64 L Hgb 10.5 L Hct 32.0 L MCV 88 MCH 28.8 MCHC 32.8 RDW Std Deviation 46.5 H Plt Count 130 L Neut % (Auto) 49 Lymph % (Auto) 17 [place] % (Auto) 32 H Eos % (Auto) 0 Baso % (Auto) 0 Neut # (Auto) 3.6 Lymph # (Auto) 1.3 [place] # (Auto) 2.4 H Eos # (Auto) 0.0 Baso # (Auto) 0.0 Immature Gran # (Auto) 0.15 H Absolute Nucleated RBC 0.00 Immature Gran % 2 H Neutrophils % (Manual) 57 Monocytes % (Manual) 13 H Eosinophils % (Manual) 1 Nucleated RBC % 0 Lymphocytes (Manual) 29 Sodium 139 Potassium 3.5 D Chloride 100 Carbon Dioxide 27.5 Anion Gap 12 BUN 62 H Creatinine 1.7 H Estim Creat Clear Calc 18.1 L eGFR 29 L BUN/Creatinine Ratio 36 H Glucose 132 H Calculated Osmolality 297 H Calcium 9.0 Corrected Calcium 9.3 Phosphorus 4.3 Magnesium 2.1 Total Bilirubin 0.8 AST 14 ALT 20 Alkaline Phosphatase 80 Total Protein 5.8 Albumin 3.6 Globulin 2.2 L Albumin/Globulin Ratio 1.6 Assessment & Plan Assessment and plan (1) Acute renal failure (ARF): Status: Acute (2) CHF (congestive heart failure): Status: Acute (3) Valvular heart disease: Status: Acute (4) Shortness of breath: Status: Acute (5) HTN (hypertension), benign: Status: Acute (6) Hyperlipidemia: Status: Acute (7) Diabetes: Status: Acute Additional Assessment & Plan Additional Plan: (1) Acute renal failure (ARF): Status: Acute Assessment and plan: Acute renal failure secondary to prerenal azotemia. 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 Creatinine tad better. Continue with diuretics (2) CHF (congestive heart failure): Status: Acute Assessment and plan: CHF exacerbation. Agree with diuretics. (3) Valvular heart disease: Status: Acute Assessment and plan: Patient had valve replacement and needs a redo TAVR surgery. (4) Shortness of breath: Status: Acute (5) HTN (hypertension), benign: Status: Acute Assessment and plan: Blood pressure stable. (6) Hyperlipidemia: Status: Acute Assessment and plan: On statin (7) Diabetes: Status: Acute Assessment and plan: Accu-Chek, sliding scale. Hold metformin. Thank you Zackery for allowing me to participate in the care of Ms. Diaz
[2025-05-21 10:39] VITALS: BP 120/80; PULSE 82
[2025-05-21] MEDS: BUMETANIDE INJ 0.25 MG/ML VIAL 4 ML 2 MG IVP (10:39)
--- NOTE | 2025-05-21 10:58 | PD.RESPRO ---
Documentation for date of: 05/21/25 Subjective Subjective Interval history: Patient is evaluated the bedside, No acute overnight events noted, reported improvement in symptoms, primary team resumed patient home dose of Bumex 2 mg p.o., given additional dose of IV Bumex 2 mg x 1. Noted improvement in BUN and creatinine on a.m. labs, BUN 62, creatinine 1.7. Exam Vital Signs Temp Pulse Resp BP Pulse Ox O2 Del Method 97.2 F 82 16 120/80 97 Room Air 05/21/25 08:00 05/21/25 10:39 05/21/25 08:00 05/21/25 10:39 05/21/25 08:00 05/21/25 08:00 Narrative Exam Physical Exam: General: Alert, no acute distress. Skin: Warm, dry, intact, no obvious rash. Head: Normocephalic, atraumatic. Eye: Normal conjunctiva, PERRL. Cardiovascular: Regular rate rhythm, no murmur, +S1/S2. Positive diastolic murmur in aortic area. no JVD noted. Respiratory: crackles auscultated at Lt lower bed, trace ankle edema, respirations unlabored, no wheezing. Gastrointestinal: Soft, nontender, non-distended. No guarding or rebound tenderness. Extremities: No edema, no cyanosis, no clubbing. 2+ radial pulse bilaterally, 2+ pedal pulse bilaterally. Neuro: No focal deficits observed. Conversant, moving all extremities. No overt cerebellar signs/incoordination. Psychiatric: Cooperative, appropriate affect. Objective Labs 05/21/25 05:22 05/21/25 05:22 Labs: Laboratory Results - last 24 hr 05/21/25 05:22 WBC 7.4 RBC 3.64 L Hgb 10.5 L Hct 32.0 L MCV 88 MCH 28.8 MCHC 32.8 RDW Std Deviation 46.5 H Plt Count 130 L Neut % (Auto) 49 Lymph % (Auto) 17 Miner % (Auto) 32 H Eos % (Auto) 0 Baso % (Auto) 0 Neut # (Auto) 3.6 Lymph # (Auto) 1.3 Miner # (Auto) 2.4 H Eos # (Auto) 0.0 Baso # (Auto) 0.0 Immature Gran # (Auto) 0.15 H Absolute Nucleated RBC 0.00 Immature Gran % 2 H Neutrophils % (Manual) 57 Monocytes % (Manual) 13 H Eosinophils % (Manual) 1 Nucleated RBC % 0 Lymphocytes (Manual) 29 Sodium 139 Potassium 3.5 D Chloride 100 Carbon Dioxide 27.5 Anion Gap 12 BUN 62 H Creatinine 1.7 H Estim Creat Clear Calc 18.1 L eGFR 29 L BUN/Creatinine Ratio 36 H Glucose 132 H Calculated Osmolality 297 H Calcium 9.0 Corrected Calcium 9.3 Phosphorus 4.3 Magnesium 2.1 Total Bilirubin 0.8 AST 14 ALT 20 Alkaline Phosphatase 80 Total Protein 5.8 Albumin 3.6 Globulin 2.2 L Albumin/Globulin Ratio 1.6 Quality Measures Quality Measures none Advance care planning discussed with:: patient Assessment & Plan Assessment Current Active Medications: Generic Name Dose Route Start Last Admin Trade Name Freq PRN Reason Stop Dose Admin Acetaminophen 650 mg 05/19/25 04:29 05/21/25 08:09 Acetaminophen 325 Mg Tablet PO 06/18/25 04:28 650 mg Q6H PRN Administration Fever >100.4 Acetaminophen 650 mg 05/19/25 04:29 Acetaminophen 325 Mg Tablet PO 06/18/25 04:28 Q6H PRN PAIN SCALE 1-3 (mild Hydrocodone Bitart/Acetaminophen 1 tab 05/19/25 04:29 Hydrocodone/Apap 5/325 Tablet PO 05/24/25 04:28 Q4HR PRN PAIN SCALE 4-6 (Moderate Bumetanide 2 mg 05/21/25 09:00 05/21/25 08:04 Bumetanide 0.5 Mg Tablet PO 06/20/25 08:59 2 mg QDAY VELMA Administration Dextrose 25 ml 05/19/25 04:29 Dextrose 50%-Water Inj 50 Ml Syringe IV 06/18/25 04:28 Q15MIN PRN BG 50-70 responsive npo pt Dextrose 50 ml 05/19/25 04:29 Dextrose 50%-Water Inj 50 Ml Syringe IV 06/18/25 04:28 Q15MIN PRN BG <50 OR BG <70 & pt unresponsive Glucagon 1 mg 05/19/25 04:29 Glucagon Inj 1 Mg Vial IM Q15MIN PRN BG <70, and no IV access Heparin Sodium (Porcine) 5,000 unit 05/19/25 06:00 05/21/25 05:15 Heparin Sod Inj 5000 Unit/Ml Vial SC 06/02/25 05:59 5,000 unit Q8HR VELMA Administration Insulin Human Lispro 0 unit 05/19/25 08:18 05/21/25 07:34 Insulin Lispro (Admelog) 1 Unit/0.01 Ml Unit SC 06/18/25 07:29 Not Given AC [facility] Protocol Ondansetron HCl 4 mg 05/19/25 04:29 Ondansetron Inj 2 Mg/Ml Inj 2 Ml IVP 06/18/25 04:28 Q8H PRN NAUSEA OR VOMITING Protocol Plan Mrs. Diaz is an 89 year old female with a history of CAD status post stents 01/19/2025, aortic stenosis with valve replacement, HFpEF EF 55%, severe aortic regurgitation with ascending aortic dilation 4.5 cm, CHF, T2DM, and HTN who presented with worsening shortness of breath. Patient was admitted for severe aortic regurgitation. #Severe aortic regurgitation #Prosthetic valve dysfunction #Hx of aortic valve stenosis s/p valve replacement #HFpEF EF 55% #Ascending aorta dilation #Cardiorenal syndrome #NSTEMI type II BNP elevated at 3280 at presentation. CXR notable for moderate vascular congestion. On physical exam, crackles auscultated at Lt lower bed, trace ankle edema, no JVD noted. EKG did not show ST segment abnormalities Troponins peaked 0.057 Elevated creatinine 2.1 (baseline 1.3) and BUN 59 (baseline 33) in the setting of normal and stable BP indicate cardiorenal syndrome where kidney injury has occurred most probably 2/2 renal vein congestion. ? Coronary angiogram performed by Dr Bowie, patient?s medical staff services manager on [id number] concluded in the following summary of findings. 1. Severe aortic valve regurgitation, prosthetic valve dysfunction with mild stenosis. 2. Elevated pulmonary artery wedge pressure and pulmonary artery pressures due to group II pulmonary hypertension secondary to heart failure. 3. Nonobstructive coronary arteries. 4. 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 ? ANTHONY ([id number]) estimated EF at 55-60%. +Severe prosthetic regurgitation of the aortic valve prosthesis. Central AI . Mostly degenerative etiology. Ascending aortic dilataion noted - moderate at 4.5 cm. Moderate MR. Normal LV size and wall thickness. Estimated EF at 55-60%. Normal RV size and function. Moderate MR. MV PISA regurgitant volume is 43.8 cm?. Moderata to severe TR. Dr Bowie attributes these findings to a degenerating aortic valve prosthesis, which is 17y old. ? TG 74, Ch 102, LDL 45, HDL 42 Plan: - Pt hs been scheduled to complete in-valve TAVR procedure by Dr. Wade. - Spoke to Shira Samuels at [facility] and made arrangements for CT TAVR and CT surgery pre-procedure TAVR - Pt will resume Bumex 2mg daily, Plavix, and Statin therapy per medical staff services manager Dr Bowie's recommendation for proper diuresis. ? Consider resuming home beta-blockers if BP allow ? Keep potassium and magnesium above 4 and 2 respectively ? Daily weights, fluid restriction, strict TK's ? Give additional dose of Bumex 2 mg IV x 1 #Type 2 diabetes mellitus #Hyperglycemia HgbA1c 8.1. ? Sliding scale insulin ? Continue to monitor blood glucose #hypothyroidism Patient had TSH of 7.59 in on 05/19. Free T4 1.38. #Hypertension - Management according to medical staff services manager Dr. Antonio's recommendations. Rest of the management deferred to primary team. Thank you for cardiology consultation. We appreciate the opportunity to participate in this patient's care. Will continue to follow-up on this patient This case was discussed with medical staff services manager, Dr. Wade. Kathia Mcdowell MD PG3 Attending Provider Attestation/Addendum I have personally seen and examined the patient separately on the above date of service and discussed the plan of care with the resident. I reviewed the resident Dr. De Jesus consultation progress note and agree with the resident findings and plan in the note above and have also edited the documentation to reflect my findings and plan. 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 Patient is a long-term patient of Dr. Bowie who has been following her for more than 20 to 25 years. She did have an bioprosthetic aortic valve replacement for severe aortic stenosis in 2006 with the at [facility] #Biocor 21 mm which has been functioning well until recently. Patient has been having shortness of breath on exertion for the past few months. Patient did have a coronary angiogram which showed severe LAD stenosis and PCI performed on 01/19/2025 but in spite of that patient continued to have worsening shortness of breath on exertion and had admission to the emergency department requiring IV Lasix after which patient had a repeat echocardiogram in his office which showed patient had severe AI along with mild aortic stenosis and left normal EF. Patient was thought to have degenerative etiology for her high aortic regurgitation of the bioprosthetic arctic valve. Left and right heart cardiac testing was performed on 05/15/2025 which showed patent stents in the LAD from 2006 as well as 2024 and showed severe AI also on the cardiac catheterization. LVEDP was elevated at 36 and RHC showed elevated pressures PCWP was 22, mean PA was 39 mmHg and mean RA was 10 mmHg low cardiac output and low cardiac index was noted.. Dr. Bowie discussed with me for possible TAVR given the severity and ANTHONY was performed by me on 05/17/2025 Normal LV size and wall thickness. Estimated EF at 55-60%. 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 Central AI . There is no evidence of prolapse or flail leaflets. No eveidence of any abcess. Mostly degenerative etiology. Ascending aortic dilataion noted - moderate at 4.5 cm Moderate MR. MV PISA regurgitant volume is 43.8 cm?. MV PISA effective regurgitant orifice (ERO) is 0.27 cm?. Normal RV size and function. Modertae to severe TR. RSVP 60-70 mmhg Bubble study negative for PFO/ASD and no LA/ NICOLA thrombus. Patient apparently was with her family yesterday and started having worsening shortness of breath and could not sleep at night and hard to sit up height 6 feet and orthopnea and tried to use pillows for sleeping in the car shortness of breath is worsened but she could not even walk a few steps to the washroom and hence came to the emergency department for further evaluation. 1. Acute congestive heart failure in the setting of severe AI mostly secondary to degenerative bioprosthetic aortic valve. 2. 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 Acute kidney injury mostly secondary to cardiorenal syndrome in the setting of CHF 4. Mildly elevated troponins-secondary to NSTEMI type II from supply/demand mismatch and CHF exacerbation 5. CAD s/p PCI to LAD in 2006 and January 2025-patent stents in Couple of days ago 6. Severe aortic stenosis status post bioprosthetic Biocor 21 mm valve placed in 2006 7. Moderately dilated ascending aorta at 4.5 cm 8. 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 Mild to moderate PAH 10. Type 2 diabetes mellitus 1. Essential hypertension 12. Hyperlipidemia Patient presented with acute shortness of breath and mostly secondary to severe AI as patient also has orthopnea on presentation. Patient did have recent left and right heart cardiac cath 3 days before this admission which showed elevated right heart pressures with LVEDP of 36 mmHg and PCWP of 22 mmHg and mean PAH was 39 mmHg and mean RA of 10 mmHg. Patient is in acute congestive heart failure secondary to severe AI. Patient was on Bumex 2 mg once daily along with spironolactone but in spite of that patient appears to be fluid overloaded and hence we will started Bumex 2 mg IV for now. Kidney function is elevated with a creatinine of 2.0 and her baseline creatinine is around 1.2 recently indicating cardiorenal syndrome and recommend aggressive diuresis for now Bumex 2 mg IV twice daily. Continue to monitor renal functions closely. Strict input output, daily weights and 2 g sodium diet. Patient diuresed very well with Bumex 2 mg IV and kidney function improved to creatinine of 1.7 and BUN also decreased as 57. Continue IV diuresis and increase her home diuretic medications. Dr. Bowie also following and will continue to follow-up on as outpatient for the next couple of weeks until the TAVR procedure date is finalized Presentation is consistent with heart failure secondary to severe AI which also is causing the moderate MR and elevated pulmonary artery pressures with worsening TR from the same. Patient will need aggressive diuresis for now and will need valve replacement. She is not a surgical candidate and will be an ideal candidate for valve in valve TAVR in addition to fracturing the old valve. Discussed in detail with the family as well as the granddaughter who is at bedside and is a nurse. Explained the risk benefits and alternatives of performing a TAVR valve in valve procedure for the patient and risks of bleeding, heart attack, stroke, pacemaker, pericardial effusion, heart attack and in detail. Explained that she is a very high risk for complications given her multiple comorbidities age and the complex procedures. Patient and family including the granddaughter are in agreement and will start the process. Called the TAVR grocery team member Shira Samuels at [facility]. Patient will need a CT TAVR as well as a cardiothoracic surgery appointment as part of the workup which has been arranged for next week after she gets discharged from here after appropriate treatment of the CHF. Once the workup is completed including the above appointments then we will discuss the patient in the structural heart team conference regarding eligibility and final planning for the valve in valve TAVR. Recommended to follow-up with me in the office also next week after she is discharged. Mildly elevated troponins mostly secondary to type II NSTEMI in the setting of acute CHF exacerbation. Patient did have a cardiac As noted above couple of days ago and showed patent stents in the LAD and rest of arteries only showed mild disease. Recommend no further ischemic workup. Continue aspirin Plavix high intensity statin for now. Management of rest of the medical conditions as per primary team and other consultants. Thank you for the consult and allowing me to participate in the care of the patient. Cardiology will continue to follow. Cyril Wade M.D. Interventional Cardiology
--- NOTE | 2025-05-21 12:41 | ESDS_ITS ---
<Statement entered by Zackery Bourgeois MD - 05/31/25 14:31> I reviewed above note and agree with findings and plans. I have also personally examined the patient with medicine team and went over assessment and plan with medical team including information technology internship and resident physician. Planned Discharge Date 05/21/25 DS: Providers Provider Date of admission: 05/19/25 04:29 Primary care physician: Marc Fuentes MD Admitting Provider: Biju Luther MD Attending Provider on Admission: Beatriz Conner MD Consults: 05/19/25 04:32 Consult to Cardiology Routine Comment: Consulting Provider: Cyril Wade 05/19/25 15:10 Consult to Cardiology Routine Comment: Consulting Provider: Cecily Bowie 05/19/25 17:27 Consult to Nephrology Routine Comment: CORINNE Consulting Provider: Arturo Bravo Attending Provider on DC: Zackery Bourgeois MD Discharging Provider: RESIDENT Sergio DS: Diagnosis Problem List Completed Was Problem List Reviewed/Reconciled?: Yes Hospital Course Hospital Course Hospital course: Reason for hospitalization:?Severe aortic insufficiency Summary: This patient is an 89-year-old female with a history of CAD status post stents, aortic stenosis status post valve replacement in 2006, HFpEF EF 55%, severe aortic regurgitation with ascending aortic dilation of 4.5 cm, CHF, T2DM, and HTN who presented with worsening shortness of breath. The patient has chronic exertional shortness of breath, but was found to have significant worsening on 05/18 in the evening, to the point that she could not sleep. The patient sought care at [facility] ED, where she was found to have a creatinine of 2.0, troponin of 0.057, and BNP over 3280, prompting admission for acute decompensated heart failure exacerbation, which was later clarified to be severe aortic insufficiency due to dysfunctional prosthetic valve. Patient's home Bumex was held on admission due to concerns of CORINNE and patient seemingly not fluid overloaded. Bedside VeXUS ultrasound performed on 05/19 showed mild congestion. Cardiology was consulted, recommended continuation of patient's home Bumex while inpatient, and ordered Bumex IVP one-time dose on 05/19. Cardiology also recommended that the patient continue her home Bumex after discharge and start home oxygen until the patient receives her scheduled TAVR procedure within the next 3 weeks and an outside facility. Nephrology was consulted, who recommended renal ultrasound along with urine electrolytes. Additional Bumex IVP ordered 05/20 with Bumex p.o. ordered for 05/21. On 05/21, the patient is alert and oriented had stable vitals and improving renal panel, patient is able to ambulate independently without assistance or DME. Patient is medically cleared for discharge to home. Imaging: ? Chest x-ray 06/08/2025 moderate vascular congestion Discharge Recommendations: - Follow up with PCP within 1 week of discharge - Continue rest of medications as previously prescribed - Return to the ED or call EMS if symptoms return and/or worsen ? Follow-up with outpatient cardiology ? Follow-up with outpatient nephrology ? Hold home metformin, continue Lantus 5 units at night until reassessment by PCP ? Hold spironolactone and valsartan for stable blood pressures on discharge, follow-up with your curing finisher to restart as needed If you don't have a PCP, you can make an appointment at the [facility]: 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 Skin: Warm, dry, intact, no obvious rash. Head: Normocephalic, atraumatic. Eye: Normal conjunctiva, PERRL. Cardiovascular: Regular rate and rhythm, systolic murmur, +S1/S2. Respiratory: Lungs are clear to auscultation, respirations unlabored, no crackles, no wheezing. Gastrointestinal: Soft, nontender, non-distended. No guarding or rebound tenderness. Extremities: No edema, no cyanosis, no clubbing. 2+ radial pulse bilaterally, 2+ pedal pulse bilaterally. Neuro: No focal deficits observed. Conversant, moving all extremities. No overt cerebellar signs/incoordination. Psychiatric: Cooperative, appropriate affect. Discharge Plan Plan Patient Disposition: HOME (Self Care) Prescriptions/Referrals Prescriptions/Med Rec: New insulin glargine [Lantus Solostar U-100 Insulin] 100 unit/mL (3 mL) insulin pen 5 unit subcut QAM Qty: 15 0RF Continued simvastatin [Zocor] 20 MG tablet 20 mg PO HS Qty: 0 aspirin 81 MG tablet,chewable 81 mg PO QDAY Qty: 0 bumetanide 2 mg tablet 2 mg PO QDAY carvedilol 3.125 mg tablet 3.125 mg PO Q8H Patient Comments: TAKE 1 TABLET BY MOUTH THREE TIMES A DAY clopidogrel [Plavix] 75 mg tablet 75 mg PO QDAY Held valsartan [Diovan] 80 MG tablet 80 mg PO QDAY Qty: 0 Hold Instructions: Resume on 06/07/25. Please hold until you see Dr. Bowie spironolactone 25 mg tablet 25 mg PO QDAY Hold Instructions: Resume on 06/07/25. Please hold until you see Dr. Bowie metformin 500 mg tablet 500 mg PO QDAY Hold Instructions: Resume on 06/09/25. please hold until you see your primary care regarding metformin since you have cute kidney injury. Please repeat renal panel in 1-2 weeks Referrals: Marc Fuentes MD [Primary Care Provider] - Patient/Caregiver Discharge Instructions Education Materials: Shortness of Breath Maximizing ..., Heart Failure: Evaluating Your Heart, Heart Failure Print Language: Slovak Activity Restrictions/Additional Instructions: Follow up with Dr. Bravo( kidney doctor) in 2 weeks. phone # [phone]. Stand Alone Forms: Maye Award Info., Patient Portal Info Letter Discharge Order Discharge Orders: Discharge (Routine); Ordered 05/21/25 Ordered By: Goldie Murphy Quality Discharge Quality Measures none
== END 2025-05-21 11:56 | disposition home or self-care (01) | DRG 280 ==
LOC: SERX 03:57 → SERHOLD 05:19 → S2NX 06:34
PROVIDERS: Physician Assistant; Admitting Provider Internal Medicine; Emergency Provider Emergency Medicine; PCP Internal Medicine; Visit Provider Student in an Organized Health Care Education/Training Program
DX: I13.0 Hypertensive heart and chronic kidney disease with heart failure and stage 1 through stage 4 chronic kidney disease, or unspecified chronic kidney disease (principal); I50.33 Acute on chronic diastolic (congestive) heart failure; I21.A1 Myocardial infarction type 2; N17.9 Acute kidney failure, unspecified; T82.897A Other specified complication of cardiac prosthetic devices, implants and grafts, initial encounter; I35.2 Nonrheumatic aortic (valve) stenosis with insufficiency; I25.10 Atherosclerotic heart disease of native coronary artery without angina pectoris; I77.810 Thoracic aortic ectasia; E11.9 Type 2 diabetes mellitus without complications; Z95.2 Presence of prosthetic heart valve; Z95.5 Presence of coronary angioplasty implant and graft; D64.9 Anemia, unspecified; E03.9 Hypothyroidism, unspecified; I35.0 Nonrheumatic aortic (valve) stenosis; E11.22 Type 2 diabetes mellitus with diabetic chronic kidney disease; E11.65 Type 2 diabetes mellitus with hyperglycemia; E78.5 Hyperlipidemia, unspecified; F17.210 Nicotine dependence, cigarettes, uncomplicated; I07.1 Rheumatic tricuspid insufficiency; N18.32 Chronic kidney disease, stage 3b; D69.6 Thrombocytopenia, unspecified; I27.22 Pulmonary hypertension due to left heart disease; I35.1 Nonrheumatic aortic (valve) insufficiency; Y83.1 Surgical operation with implant of artificial internal device as the cause of abnormal reaction of the patient, or of later complication, without mention of misadventure at the time of the procedure; Z79.02 Long term (current) use of antithrombotics/antiplatelets; Z79.82 Long term (current) use of aspirin; Z79.84 Long term (current) use of oral hypoglycemic drugs; Z79.899 Other long term (current) drug therapy; Z95.3 Presence of xenogenic heart valve
CPT/HCPCS: 36415; 71045; 80053; 80061; 83036; 83735; 83880; 84100; 84439; 84443; 84484; 85025; 85610; 85730; 87811; 93005; 93312; 96372; 99152; 99284; J1644; J1815; J2250; J3010; J3490; A9270

== ENCOUNTER → 2025-06-21 | Outpatient (CLI) | payer MEDICARE, SELFPAY ==
[2025-06-21 13:25] LABS: Basophils # (Auto) 0.0 Thou/mm3 (0.0-0.2); Basophils % (Auto) 0 % (0-2.5); Eosinophils # (Auto) 0.0 Thou/mm3 (0.0-0.5); Eosinophils % (Auto) 0 % (0-10); Hematocrit 30.0 % (36.0-46.0); Hemoglobin 9.6 g/dL (12.0-16.0); Immature Granulocytes Auto 0.31 Thou/mm3 (0.00-0.00); Lymphocytes # (Auto) 0.9 Thou/mm3 (1.0-4.8); Lymphocytes % (Auto) 14 % (10-50); Mean Corpuscular HGB Conc 32.0 g/dl (31.0-37.0); Mean Corpuscular Hemoglobin 29.3 pg (25.0-35.0); Mean Corpuscular Volume 92 fL (80-100); Monocytes # (Auto) 2.2 Thou/mm3 (0.0-0.8); Monocytes % (Auto) 35 % (0-12); Neutrophils # (Auto) 2.9 Thou/mm3 (1.8-7.7); Neutrophils % (Auto) 46 % (37-80); Nucleated Red Blood Cell # 0.00 Thou/mm3 (0.00-0.00); Nucleated Red Blood Cell % 0 /100 WBC (0); Platelet Count 167 Thou/mm3 (140-440); RDW Standard Deviation 57.3 fL (36.4-46.3); Red Blood Count 3.28 Miln/mm3 (4.00-5.20); White Blood Count 6.3 Thou/mm3 (3.6-11.0)
[2025-06-21 14:03] LABS: Alanine Aminotransferase 9 U/L (10-49); Albumin, Serum 4.3 gm/dL (3.4-4.8); Albumin/Globulin Ratio 1.6 (1.2-2.2); Alkaline Phosphatase 92 U/L (46-116); Anion Gap 9 (7-16); Aspartate Amino Transferase 19 U/L (0-34); BUN/Creatinine Ratio 22 Ratio (12-20); Bilirubin,Total 1.1 mg/dL (0.3-1.2); Blood Urea Nitrogen 26 mg/dL (9-23); Calcium 10.5 mg/dL (8.3-10.6); Calcium (Corrected) 10.5 mg/dL (8.5-10.1); Carbon Dioxide 28.0 mMol/L (20.0-31.0); Chloride 100 mMol/L (98-107); Creatinine (Component) 1.2 mg/dL (0.6-1.3); Globulin 2.7 gm/dL (2.3-3.5); Glucose 97 mg/dL (74-106); Magnesium 2.0 mg/dL (1.6-2.6); Osmolality,Calculated 278 (275-295); Potassium 4.7 mMol/L (3.4-5.1); Sodium 137 mMol/L (136-145); Total Protein 7.0 gm/dL (5.7-8.2); eGFR 44 See Note
== END | disposition home or self-care (01) ==
LOC: SLAB 12:30
PROVIDERS: PCP Internal Medicine; Referring Provider Internal Medicine Cardiovascular Disease; Visit Provider Internal Medicine Cardiovascular Disease
DX: I35.1 Nonrheumatic aortic (valve) insufficiency (principal)
CPT/HCPCS: 36415; 80053; 83735; 85025

== ENCOUNTER → 2025-06-28 | Outpatient (CLI) | payer MEDICARE, SELFPAY ==
[2025-06-28 11:23] LABS: Basophils # (Auto) 0.0 Thou/mm3 (0.0-0.2); Basophils % (Auto) 1 % (0-2.5); Eosinophils # (Auto) 0.0 Thou/mm3 (0.0-0.5); Eosinophils % (Auto) 0 % (0-10); Hematocrit 34.7 % (36.0-46.0); Hemoglobin 11.1 g/dL (12.0-16.0); Immature Granulocytes Auto 0.28 Thou/mm3 (0.00-0.00); Lymphocytes # (Auto) 0.9 Thou/mm3 (1.0-4.8); Lymphocytes % (Auto) 15 % (10-50); Mean Corpuscular HGB Conc 32.0 g/dl (31.0-37.0); Mean Corpuscular Hemoglobin 28.9 pg (25.0-35.0); Mean Corpuscular Volume 90 fL (80-100); Monocytes # (Auto) 1.7 Thou/mm3 (0.0-0.8); Monocytes % (Auto) 29 % (0-12); Neutrophils # (Auto) 2.9 Thou/mm3 (1.8-7.7); Neutrophils % (Auto) 50 % (37-80); Nucleated Red Blood Cell # 0.00 Thou/mm3 (0.00-0.00); Nucleated Red Blood Cell % 0 /100 WBC (0); Platelet Count 189 Thou/mm3 (140-440); RDW Standard Deviation 53.6 fL (36.4-46.3); Red Blood Count 3.84 Miln/mm3 (4.00-5.20); White Blood Count 5.8 Thou/mm3 (3.6-11.0)
== END | disposition home or self-care (01) ==
LOC: COPL 10:49
PROVIDERS: PCP Internal Medicine; Referring Provider Internal Medicine Cardiovascular Disease; Visit Provider Internal Medicine Cardiovascular Disease
DX: I35.1 Nonrheumatic aortic (valve) insufficiency (principal)
CPT/HCPCS: 36415; 85025